=== PATIENT | female | born 1945 | race Caucasian/White ===

== ENCOUNTER 2020-05-21 12:09 | Outpatient (CLI) | payer MEDICARE, OTHER, SELFPAY ==
[2020-05-21 13:06] LABS: Alanine Aminotransferase 18 U/L (4-35); Albumin Level 3.9 g/dL (3.5-5.1); Alkaline Phosphatase 93 U/L (38-126); Anion Gap 10.1 mmol/L (7-16); Aspartate Amino Transferase 25 U/L (14-36); Bilirubin,Total 0.4 mg/dL (0.2-1.3); Blood Urea Nitrogen 19 mg/dL (7-17); Calcium 8.4 mg/dL (8.4-10.2); Carbon Dioxide 25 mmol/L (22-30); Chloride 107 mmol/L (98-107); Estimated Glomerular Filt Rate 54; Glucose 98 mg/dL (65-105); Potassium 4.1 mmol/L (3.4-5.0); Sodium 138 mmol/L (137-145); Uric Acid 4.1 mg/dL (2.5-7.5)
== END 2020-05-21 12:10 | disposition home or self-care (01) ==
PROVIDERS: PCP Internal Medicine; Visit Provider Podiatrist Foot & Ankle Surgery
DX: B35.1 Tinea unguium (principal); M10.079 Idiopathic gout, unspecified ankle and foot
CPT/HCPCS: 36415; 80053; 84550

== ENCOUNTER 2020-06-25 11:06 | Outpatient (CLI) | payer MEDICARE, OTHER, SELFPAY ==
[2020-06-25 12:10] LABS: Alanine Aminotransferase 15 U/L (4-35); Albumin Level 4.1 g/dL (3.5-5.1); Alkaline Phosphatase 96 U/L (38-126); Anion Gap 6 mmol/L (8-16); Aspartate Amino Transferase 23 U/L (14-36); Bilirubin,Total 0.4 mg/dL (0.2-1.3); Blood Urea Nitrogen 16 mg/dL (7-17); Calcium 9.7 mg/dL (8.4-10.2); Carbon Dioxide 30 mmol/L (22-30); Chloride 101 mmol/L (98-107); Cholesterol 186 mg/dL (0-200); Estimated Glomerular Filt Rate 49; Glucose 117 mg/dL (65-105); HDL Direct 43 mg/dL; Potassium 4.1 mmol/L (3.4-5.0); Sodium 137 mmol/L (137-145); Triglycerides 102 mg/dL (<150); Uric Acid 3.7 mg/dL (2.5-7.5)
[2020-06-25 12:20] LABS: LDL Cholesterol Direct 111 mg/dL
[2020-06-25 12:39] LABS: Thyroid Stimulating Hormone 0.782 uIU/mL (0.465-4.680)
[2020-06-25 12:52] LABS: Vitamin D 25 Hydroxy 49.1 ng/mL
== END 2020-06-25 11:07 | disposition home or self-care (01) ==
LOC: ANHLAB 11:09
PROVIDERS: PCP Internal Medicine; Visit Provider Internal Medicine Endocrinology, Diabetes & Metabolism
DX: I10 Essential (primary) hypertension (principal); E03.9 Hypothyroidism, unspecified; M10.9 Gout, unspecified; Z79.899 Other long term (current) drug therapy; E89.0 Postprocedural hypothyroidism
CPT/HCPCS: 36415; 80053; 80061; 82306; 84439; 84443; 84550

== ENCOUNTER 2020-10-28 07:48 | Outpatient (CLI) | payer MEDICARE, OTHER, SELFPAY ==
--- NOTE | ~2020-10-28 | MM_ITS ---
EXAMINATION: MM screening [facility] BI w carlin HISTORY: Screening mammogram TECHNIQUE: Craniocaudal and mediolateral oblique 3-D tomosynthesis images were obtained and synthetic 2-D images were generated. CAD analysis was submitted and interpreted. COMPARISON: 04/23/2019, 01/11/2018 bilateral digital screening mammogram examinations BREAST PARENCHYMAL COMPOSITION: There are scattered areas of fibroglandular density. FINDINGS: Scattered bilateral benign calcifications. There is no evidence of suspicious mass, calcifi cation, or architectural distortion to suggest malignancy in either breast. There has been no suspici ous interval change. IMPRESSION: 1. No mammographic evidence of malignancy. 2. Recommend routine screening mammography in one year. BI-RADS Category 2: Benign finding(s). Reviewed, dictated and finalized at location B. TECHNICIAN
--- NOTE | ~2020-10-28 | DEXA_ITS ---
Bone Density Report Name: Deanna Loving Age: 75 Sex: Female Ethnicity: White Date of : 1945 Indication: osteopenia; height loss; Referring Provider: LETICIA, ANGELITA Stoner Study: Bone densitometry was performed. Exam Date: October 28, 2020 Accession number: [id number] Bone Density: Region BMD T-score Z-score Classification AP Spine (L1, L3) 1.307 2.7 4.9 Normal Femoral Neck (Left) 0.678 -1.5 0.5 Osteopenia Total Hip (Left) 0.772 -1.4 0.3 Osteopenia Total Hip Bilateral Avg 0.792 -1.3 0.5 Osteopenia Femoral Neck (Right) 0.722 -1.1 0.9 Osteopenia Total Hip (Right) 0.812 -1.1 0.6 Osteopenia World Health Organization criteria for BMD impression classify patients as: Normal (T-score at or above -1.0), Osteopenia (T-score between -1.0 and -2.5), or Osteoporosis (T-score at or below -2.5). 10-year Fracture Risk(1): Major Osteoporotic Fracture 9.2% Hip Fracture 1.5% Reported Risk Factors: [place] (), Neck BMD=0.678, BMI=44.5 (1) FRAX(R) Version 3.08. Fracture probability calculated for an untreated patient. Fracture probability may be lower if the patient has received treatment. Previous Exams: Region Exam Age BMD T-score BMD Change BMD Change Date g/cm2 vs Baseline vs Previous AP Spine(L1, L3) 10/28/2020 75 1.307 2.7 0.241(22.6%)* 0.241(22.6%)* 01/11/2018 72 1.066 0.5 Total Hip(Left) 10/28/2020 75 0.772 -1.4 0.010(1.4%) 0.010(1.4%) 01/11/2018 72 0.761 -1.5 Total Hip(Right) 10/28/2020 75 0.812 -1.1 0.033(4.2%)* 0.033(4.2%)* 01/11/2018 72 0.779 -1.3 *Denotes significance at 95% confidence level, LSC for AP Spine = 0.022 g/cm2, LSC for Total Hip = 0.027 g/cm2 Clinical Information Provided by Patient: Has used the following medications: Vitamin D, Calcium Patient maximum height was 67 Menopause Age: 48 No regular weight bearing exercise Drinks caffeinated beverages Onset of menses at age 13 Number of children 6 Impression: The patient has low bone mass, based on the Left Femoral Neck T-score. The patient has an estimated ten-year risk of hip fracture of 1.5% and an estimated ten-year risk of major fracture of 9.2%, based on the WHO FRAX algorithm. No significant bone loss was observed. Discussion: BONE DENSITY IS LOW AT ONE OR MORE SKELETAL SITES. This patient's lowest T-score is low at one or more skeletal sites. It meets the World Health Organization's (WHO) criteria for ?low bone mas
== END 2020-10-28 07:49 | disposition home or self-care (01) ==
LOC: ANHIMG 07:54
PROVIDERS: PCP Internal Medicine; Visit Provider Internal Medicine
DX: Z12.31 Encounter for screening mammogram for malignant neoplasm of breast (principal); N95.9 Unspecified menopausal and perimenopausal disorder; M85.852 Other specified disorders of bone density and structure, left thigh; M85.851 Other specified disorders of bone density and structure, right thigh
CPT/HCPCS: 77063; 77067; 77080

== ENCOUNTER 2021-05-03 09:10 | Outpatient (CLI) | payer MEDICARE, OTHER, SELFPAY ==
[2021-05-03 10:12] LABS: Alanine Aminotransferase 17 U/L (4-35); Albumin Level 4.2 g/dL (3.5-5.1); Alkaline Phosphatase 119 U/L (38-126); Anion Gap 10 mmol/L (8-16); Aspartate Amino Transferase 26 U/L (14-36); Bilirubin,Total 0.4 mg/dL (0.2-1.3); Blood Urea Nitrogen 23 mg/dL (7-17); Calcium 10.7 mg/dL (8.4-10.2); Carbon Dioxide 26 mmol/L (22-30); Chloride 102 mmol/L (98-107); Estimated Glomerular Filt Rate 49; Glucose 107 mg/dL (65-105); Sodium 138 mmol/L (137-145); Uric Acid 3.8 mg/dL (2.5-7.5)
== END 2021-05-03 09:11 | disposition home or self-care (01) ==
PROVIDERS: PCP Internal Medicine; Visit Provider Podiatrist Foot & Ankle Surgery
DX: M10.079 Idiopathic gout, unspecified ankle and foot (principal)
CPT/HCPCS: 36415; 80053; 84550

== ENCOUNTER 2022-05-02 09:31 | Outpatient (CLI) | payer MEDICARE, OTHER, SELFPAY ==
[2022-05-02 10:09] LABS: Hemoglobin A1C 5.5 % (<5.7)
[2022-05-02 10:11] LABS: Alanine Aminotransferase 15 U/L (6-35); Albumin Level 4.1 g/dL (3.5-5.1); Alkaline Phosphatase 117 U/L (38-126); Anion Gap 8 mmol/L (8-16); Aspartate Amino Transferase 23 U/L (14-36); Bilirubin,Total 0.4 mg/dL (0.2-1.3); Blood Urea Nitrogen 21 mg/dL (7-17); Calcium 9.3 mg/dL (8.4-10.2); Carbon Dioxide 25 mmol/L (22-30); Chloride 106 mmol/L (98-107); Estimated Glomerular Filt Rate 54; Glucose 112 mg/dL (65-110); Sodium 139 mmol/L (137-145); Uric Acid 4.5 mg/dL (2.5-7.5)
[2022-05-02 10:50] LABS: Free T4 Free Thyroxine 1.91 ng/mL (0.78-2.19); Vitamin D 25 Hydroxy 76.2 ng/mL
[2022-05-02 11:22] LABS: Thyroid Stimulating Hormone 0.479 uIU/mL (0.465-4.680)
[2022-05-05 04:43] LABS: Triiodothyronine T3 Free 2.6 pg/mL (2.3-4.2)
== END 2022-05-02 09:32 | disposition home or self-care (01) ==
PROVIDERS: PCP Internal Medicine; Referring Provider Podiatrist Foot & Ankle Surgery; Visit Provider Internal Medicine
DX: I10 Essential (primary) hypertension (principal); E03.9 Hypothyroidism, unspecified; M10.9 Gout, unspecified; Z79.899 Other long term (current) drug therapy; R73.9 Hyperglycemia, unspecified
CPT/HCPCS: 36415; 80053; 82306; 83036; 84439; 84443; 84481; 84550

== ENCOUNTER 2022-06-20 08:55 | Outpatient (CLI) | payer MEDICARE, OTHER, SELFPAY ==
--- NOTE | ~2022-06-20 | MM_ITS ---
EXAMINATION: MM screening [facility] BI w carlin HISTORY: Screening mammogram TECHNIQUE: Craniocaudal and mediolateral oblique 3-D tomosynthesis images were obtained and synthetic 2-D images were generated. CAD analysis was submitted and interpreted. COMPARISON: 11/17/2020, 04/23/2019 BREAST PARENCHYMAL COMPOSITION: The breasts are almost entirely fatty. FINDINGS: There is no suspicious mass, calcification, or architectural distortion to suggest malignan cy in either breast. There has been no suspicious interval change. IMPRESSION: 1. No mammographic evidence of malignancy. 2. Recommend routine screening mammography in one year. BI-RADS Category 1: Negative Reviewed, dictated and finalized at location A.
== END 2022-06-20 08:56 | disposition home or self-care (01) ==
LOC: ANHIMG 08:57
PROVIDERS: PCP Internal Medicine; Visit Provider Internal Medicine
DX: Z12.31 Encounter for screening mammogram for malignant neoplasm of breast (principal)
CPT/HCPCS: 77063; 77067

== ENCOUNTER 2023-03-01 05:34 | Day surgery (SDC) | payer MEDICARE, OTHER, SELFPAY ==
[2023-01-16 14:28] VITALS: BMI 39.5
--- NOTE | 2023-02-15 14:13 | PC.NURSE ---
verified with pt new date and time of procedure. pt denies any changes in medical history or new medications. pt denies any questions.
--- NOTE | 2023-02-28 20:32 | PM.HPGS ---
History of Present Illness History of Present Illness Consent: Risks, benefits, and alternatives have been discussed and questions answered. Patient agrees to proceed with procedure. Chief complaint: neoplasm screening Narrative: Deanna Loving is a 77 year old female Colonoscopy with possible biopsy or polypectomy or cautery or injection of substances.Ten years ago she had colonoscopy with removal of a small tubular adenoma. Review of Systems Review of Systems: All systems reviewed & are unremarkable except as noted in HPI and below PMFSH Social History Social History Smoking packs per day: 0.5 Smoking cigarettes per day: 10.0 Years smoked: 7 Smoking pack-years: 3.50 Smoking status: Former smoker Tobacco type: cigarettes Alcohol intake: current Drinks per week: 3 Substance use: never Substance use type: does not use Living arrangements: with family Spiritual care concerns: No Meds Home Medications and Allergies Home Medications Medication Instructions Recorded Confirmed Type allopurinol 100 mg tablet 100 mg PO DAILY 01/16/23 01/16/23 History levothyroxine 125 mcg tablet 125 mcg PO DAILY 01/16/23 01/16/23 History (Synthroid) losartan 100 mg tablet 100 mg PO DAILY 01/16/23 01/16/23 History terbinafine HCl 250 mg tablet 250 mg PO DAILY 01/16/23 01/16/23 History Allergies Allergy/AdvReac Type Severity Reaction Status Date / Time Sulfa (Sulfonamide Allergy Mild Rash Verified 03/01/23 09:36 Antibiotics) Exam Const: General: alert Orientation/consciousness: patient oriented x3 Resp: Auscultation: clear to auscultation bilaterally Cardio: Rate: regular rate Rhythm: regular rhythm GI: GI Palp: Yes Soft to palpation and No Tenderness to palpation present (GI) Neuro: General: patient oriented x3 Assessment and Plan Assessment and plan (1) Colon cancer screening: Code(s): Z12.11 - Encounter for screening for malignant neoplasm of colon Status: Acute Assessment and Plan: Colonoscopy with possible biopsy or polypectomy or cautery or injection of substances.
[2023-03-01 09:38] VITALS: BP 109/85; PULSE 84; RESP 18; TEMP 36.1; O2SAT 99
[2023-03-01] MEDS: LACTATED RINGERS 1,000 ML 150 ML IV CONT (09:51)
--- NOTE | 2023-03-01 10:40 | WPDANESEPPF ---
Anes - Initial Pre Proc Eval Procedure: Operation Date: 03/01/23 10:45 Proposed Procedures p Screening Colonoscopy - Chuy Villar MD Date/Time: 03/01/23 10:40 Surgeon: Chuy Villar MD Pre Op Diagnosis: neoplasm screening Patient Data Age: 77 Gender: F Height: 1.63 m Weight: 104.2 kg Last Vital Signs Temp 97.0 F L 03/01/23 09:38 Pulse 84 03/01/23 09:38 Resp 18 03/01/23 09:38 BP 109/85 03/01/23 09:38 Pulse Ox 99 03/01/23 09:38 O2 Del Method Room Air 03/01/23 09:38 Allergies Allergy/AdvReac Type Severity Reaction Status Date / Time Sulfa (Sulfonamide Allergy Mild Rash Verified 03/01/23 09:36 Antibiotics) Home Medications Medication Instructions Recorded Confirmed Type allopurinol 100 mg tablet 100 mg PO DAILY 01/16/23 01/16/23 History levothyroxine 125 mcg tablet 125 mcg PO DAILY 01/16/23 01/16/23 History (Synthroid) losartan 100 mg tablet 100 mg PO DAILY 01/16/23 01/16/23 History terbinafine HCl 250 mg tablet 250 mg PO DAILY 01/16/23 01/16/23 History Patient hx anesthesia problems: none Family hx anesthesia problems: none Results Review: All pre-operative results and documents have been reviewed as part of the pre-operative evaluation. [facility] [place] Social History Social History Smoking packs per day: 0.5 Smoking cigarettes per day: 10.0 Years smoked: 7 Smoking pack-years: 3.50 Smoking status: Former smoker Tobacco type: cigarettes Alcohol intake: current Drinks per week: 3 Substance use: never Substance use type: does not use Living arrangements: with family Spiritual care concerns: No Anes - Eval Final PreProcedure Day of Procedure 03/01/23 10:40 Patient weight: morbidly obese Heart: regular rate and rhythm Lungs: clear to auscultation Airway: Mallampati scale class II Neurological: alert and oriented Last oral intake: >/= 8 hours ASA classification: III Emergent: no Anesthetic plan: proceed Anesthesia type and monitoring: general GIVS and standard monitoring Results Review: All pre-operative results and documents have been reviewed as part of the pre-operative evaluation. Informed Consent: The patient's anesthetic plan and its attendant risks and benefits were discussed with the patient/family/POA. Questions were solicited and answers provided to the satisfaction of the patient/family/POA.
[2023-03-01 11:08] VITALS: BP 115/57; PULSE 61; RESP 22; O2SAT 100
[2023-03-01 11:18] VITALS: BP 87/62; PULSE 65; RESP 22; O2SAT 100
[2023-03-01 11:28] VITALS: BP 129/69; PULSE 58; RESP 19; O2SAT 100
== END 2023-03-01 11:53 | disposition home or self-care (01) ==
PROVIDERS: PCP Internal Medicine; Visit Provider Internal Medicine Gastroenterology
PROC: 0DJD8ZZ Inspection of Lower Intestinal Tract, Via Natural or Artificial Opening Endoscopic (ICD-10-PCS; CPT 45378; principal; 2023-03-01 10:45)
DX: Z12.11 Encounter for screening for malignant neoplasm of colon (principal); K57.30 Diverticulosis of large intestine without perforation or abscess without bleeding; K64.8 Other hemorrhoids; Z86.010 Personal history of colon polyps; Z87.891 Personal history of nicotine dependence; E66.01 Morbid (severe) obesity due to excess calories; Z68.39 Body mass index [BMI] 39.0-39.9, adult
CPT/HCPCS: G0105; J2704; J7120

== ENCOUNTER 2023-05-01 08:36 | Outpatient (CLI) | payer MEDICARE, OTHER, SELFPAY ==
[2023-05-01 09:18] LABS: Alanine Aminotransferase 16 U/L (6-35); Albumin Level 3.9 g/dL (3.5-5.1); Alkaline Phosphatase 101 U/L (38-126); Anion Gap 1 mmol/L (8-16); Aspartate Amino Transferase 25 U/L (14-36); Bilirubin,Total 0.5 mg/dL (0.2-1.3); Blood Urea Nitrogen 14 mg/dL (7-17); Calcium 8.9 mg/dL (8.4-10.2); Carbon Dioxide 32 mmol/L (22-30); Chloride 104 mmol/L (98-107); Estimated Glomerular Filt Rate 54; Glucose 116 mg/dL (65-110); Potassium 4.1 mmol/L (3.4-5.0); Sodium 137 mmol/L (137-145); Uric Acid 5.1 mg/dL (2.5-7.5)
== END 2023-05-01 08:37 | disposition home or self-care (01) ==
PROVIDERS: PCP Internal Medicine; Visit Provider Podiatrist Foot & Ankle Surgery
DX: M10.079 Idiopathic gout, unspecified ankle and foot (principal)
CPT/HCPCS: 36415; 80053; 84550

== ENCOUNTER 2023-05-26 08:23 | Outpatient (CLI) | payer MEDICARE, OTHER, SELFPAY ==
--- NOTE | 2023-05-26 | ECHO_ITS ---
Patient Info Name: Deanna Loving Age: 78 years : 1945 Gender: Female Ht: 64 in Wt: 220 lbs BSA: 2.17 m2 HR: 76 bpm BP: 145 / 86 mmHg Technical Quality: Good Exam Date: 05/26/2023 8:53 AM Exam Location: [facility] Patient Status: Outpatient Admit Date: 05/26/2023 Staff Ordering Physician: Amandeep, Sharan Stoner MD Window Caser: Aleta Mendoza RDCS Attending Provider: Wesley, Sharan Stoner MD Referring Physician: Amandeep FARRELL; Exam Type: CA echo doppler color flow Study Info Indications I49.9 - Cardiac arrhythmia, unspecified Complete two-dimensional, color flow and Doppler transthoracic echocardiogram is performed. Summary 1. Complete two-dimensional, color flow and Doppler transthoracic echocardiogram is performed. 2. Left ventricular chamber dimension is normal. 3. Left ventricular systolic function is normal, estimated at 60-65%. 4. The left ventricular diastolic function is grade I diastolic dysfunction. 5. E/e' 10 is mildly elevated. 6. Left atrial chamber dimension is mildly enlarged. 7. There is trace tricuspid valve regurgitation. 8. No pulmonary hypertension, estimated pulmonary arterial systolic pressure is 30 mmHg. Left Ventricle E/e' 10 is mildly elevated. Left ventricular chamber dimension is normal. Left ventricular systolic function is normal, estimated at 60-65%. The left ventricular diastolic function is grade I diastolic dysfunction. Right Ventricle Right ventricular chamber dimension is normal. Right ventricular systolic function is normal. Left Atria Left atrial chamber dimension is mildly enlarged. Right Atria Right atrial chamber dimension is normal. Aortic Valve The aortic valve is trileaflet. There is no aortic valve stenosis. There is no aortic valve regurgitation. Pulmonic Valve There is no pulmonic regurgitation. Mitral Valve There is no mitral valve stenosis. There is no mitral valve regurgitation. Tricuspid Valve There is trace tricuspid valve regurgitation. No pulmonary hypertension, estimated pulmonary arterial systolic pressure is 30 mmHg. Pericardium/Pleural There is no pericardial effusion. Inferior Vena Cava Normal inferior vena cava with >50% collapse upon inspiration consistent with normal right atrial pressure, 5 mmHg. Aorta The aortic root size at the sinus of Valsalva is normal. Left Ventricular Outflow Tract Name Value Normal LVOT 2D LVOT Diameter 2.0 cm LVOT Doppler LVOT Peak Gradient 4 mmHg LVOT Mean Gradient 2 mmHg LVOT VTI 23 cm LVOT VTI/AV VTI Ratio 0.8 LVOT Stroke Volume 71 ml LVOT CO 13.8 l/min LVOT CI 6.4 l/min/m2 Pulmonic Valve Name Value Normal RVOT Doppler RVOT Peak Gradient 2 mmHg PV Doppler
== END 2023-05-26 08:24 | disposition home or self-care (01) ==
LOC: ANHCARD 08:25
PROVIDERS: PCP Internal Medicine; Visit Provider Internal Medicine
DX: R94.31 Abnormal electrocardiogram [ECG] [EKG] (principal); I49.9 Cardiac arrhythmia, unspecified
CPT/HCPCS: 93306

== ENCOUNTER 2024-03-22 08:05 | Outpatient (CLI) | payer MEDICARE, OTHER, SELFPAY ==
--- NOTE | ~2024-03-22 | MM_ITS ---
EXAMINATION: MM screening [facility] BI w carlin HISTORY: Screening TECHNIQUE: Craniocaudal and mediolateral oblique 3-D tomosynthesis images were obtained and synthetic 2-D images were generated. CAD analysis was submitted and interpreted. COMPARISON: Comparison to multiple prior studies sequentially, with oldest reviewed study dated 11/2018. BREAST PARENCHYMAL COMPOSITION: Not dense: There are scattered areas of fibroglandular density. FINDINGS: There is no evidence of suspicious mass, calcification, or architectural distortion to sugg est malignancy in either breast. There has been no suspicious interval change. IMPRESSION: 1. No mammographic evidence of malignancy. 2. Recommend routine screening mammography in one year. BI-RADS Category 1: Negative Reviewed, dictated and finalized at location B.
--- NOTE | ~2024-03-22 | DEXA_ITS ---
Bone Density Report Name: JULIOCESAR AMBRIZ Age: 78 Sex: Female Ethnicity: White Date of : 1945 Indication: osteopenia; height loss; history of glucocorticoids; Referring Provider: LETICIA, ANGELITA Stoner Study: Bone densitometry was performed. Exam Date: March 22, 2024 Accession number: [id number] Bone Density: Region BMD T-score Z-score Classification AP Spine(L1-L4) 1.319 2.5 5.0 Normal Femoral Neck (Left) 0.638 -1.9 0.3 Osteopenia Total Hip (Left) 0.788 -1.3 0.6 Osteopenia Femoral Neck (Right) 0.684 -1.5 0.7 Osteopenia Total Hip (Right) 0.793 -1.2 0.7 Osteopenia Total Hip Mean 0.790 -1.3 0.7 Osteopenia World Health Organization criteria for BMD impression classify patients as: Normal (T-score at or above -1.0), Osteopenia (T-score between -1.0 and -2.5), or Osteoporosis (T-score at or below -2.5). 10-year Fracture Risk(1): Major Osteoporotic Fracture 18% Hip Fracture 4.7% Reported Risk Factors: [place] (), Neck BMD=0.638, BMI=41.6, glucocorticoids (1) FRAX(R) Version 3.08. Fracture probability calculated for an untreated patient. Fracture probability may be lower if the patient has received treatment. Previous Exams: Region Exam Age BMD T-score BMD Change BMD Change Date g/cm2 vs Baseline vs Previous Total Hip(Left) 03/22/2024 78 0.788 -1.3 0.026 (3.5%) 0.016 (2.1%) 10/28/2020 75 0.772 -1.4 0.010 (1.4%) 0.010 (1.4%) 01/11/2018 72 0.761 -1.5 Total Hip(Right) 03/22/2024 78 0.793 -1.2 0.014 (1.8%) -0.019 (-2.3%) 10/28/2020 75 0.812 -1.1 0.033 (4.2%)* 0.033 (4.2%)* 01/11/2018 72 0.779 -1.3 *Denotes significance at 95% confidence level, LSC for Total Hip = 0.027 g/cm2 Clinical Information Provided by Patient: Has taken Glucocorticoids Has used the following medications: Vitamin D, Calcium Patient maximum height was 67.5 Menopause Age: 48 No regular weight bearing exercise Drinks caffeinated beverages Onset of menses at age 14 Number of children 5 Missed period for more than 6 months in a row Impression: The patient has low bone mass, based on the Left Femoral Neck T-score. The patient has an estimated ten-year risk of hip fracture of 4.7% and an estimated ten-year risk of major fracture of 18%, based on the WHO FRAX algorithm. The patient has risk factors, including: history of glucocorticoid therapy. No significant bone loss was observed. Discussion: BONE DENSITY IS LOW AT ONE OR MORE SKELETAL SITES.
== END 2024-03-22 08:06 | disposition home or self-care (01) ==
LOC: ANHIMG 08:06
PROVIDERS: PCP Internal Medicine; Visit Provider Internal Medicine
DX: Z12.31 Encounter for screening mammogram for malignant neoplasm of breast (principal); Z78.0 Asymptomatic menopausal state; M85.89 Other specified disorders of bone density and structure, multiple sites
CPT/HCPCS: 77063; 77067; 77080

== ENCOUNTER 2024-05-01 08:51 | Outpatient (CLI) | payer MEDICARE, OTHER, SELFPAY ==
[2024-05-01 10:48] LABS: Alanine Aminotransferase 12 U/L (6-35); Albumin Level 3.9 g/dL (3.5-5.1); Alkaline Phosphatase 94 U/L (38-126); Anion Gap 9 mmol/L (4-12); Aspartate Amino Transferase 22 U/L (14-36); Bilirubin,Total 0.4 mg/dL (0.2-1.3); Blood Urea Nitrogen 21 mg/dL (7-17); Calcium 8.5 mg/dL (8.4-10.2); Carbon Dioxide 28 mmol/L (22-30); Chloride 101 mmol/L (98-107); Estimated Glomerular Filt Rate 44; Glucose 99 mg/dL (65-110); Potassium 3.9 mmol/L (3.4-5.0); Sodium 138 mmol/L (137-145)
== END 2024-05-01 08:52 | disposition home or self-care (01) ==
LOC: ANHLAB 08:54
PROVIDERS: PCP Internal Medicine; Visit Provider Podiatrist Foot & Ankle Surgery
DX: B35.1 Tinea unguium (principal); M10.079 Idiopathic gout, unspecified ankle and foot
CPT/HCPCS: 36415; 80053; 84550

== ENCOUNTER 2025-04-30 08:43 | Outpatient (CLI) | payer MEDICARE, OTHER, SELFPAY ==
--- OUTSIDE RECORDS SUMMARY | 2025-04-30 09:00 | XMS_ITS | Data Portability ---
Author Organization [place] [facility], Main Office Address [address] [place] [address] Care Team Providers Care Casing Runner Name Role Phone ANGELITA KELLY Primary Care Provider Assessment No assessment recorded. Plan of Treatment Reminders Order Date Submit Date Provider Last Modified By Organization Details Last Modified Time Details Appointments Any 15 2024 08:45A M Angelita Kelly MD Not available Not available Not available Lab BMP, serum or plasma 2024 025 [facility] (Lab), [address] [place], [address], 01/30/2025 18:34:24 BMP, serum or plasma 2023 024 [facility] (Lab), [address] [place], [address], 10/03/2024 11:10:02 uric acid, serum or plasma 2023 024 [facility] (Lab), [address] [place], [address], 06/11/2024 19:59:39 CBC w/ auto diff 2023 024 [facility] (Lab), [address] [place], [address], 06/11/2024 19:15:45 glycohemo globin, total, blood 2023 024 [facility] (Lab), [address] [place], [address], 06/11/2024 20:43:02 CMP, serum or plasma 2023 024 [facility] (Lab), [address] [place], [address], 06/11/2024 19:59:38 TSH, serum or plasma 2023 024 [facility] (Lab), [address] [place], [address], 06/11/2024 20:34:56 T4, free, serum 2023 024 [facility] (Lab), [address] [place], [address], 06/11/2024 20:22:48 T3, free, serum or plasma 2023 024 [facility] (Lab), [address] [place], [address], 06/11/2024 20:09:00 vitamin D, 25-hydrox y, total, serum [address] (Lab), [address] [place], [address], 10/25/2023 09:24:56 CBC w/ auto diff [address] (Lab), [address] [place], [address], 10/25/2023 09:24:56 glycohemo globin, total, blood [address] (Lab), [address] [place], [address], 10/25/2023 09:24:55 CMP, serum or plasma [address] (Lab), [address] [place], [address], 10/25/2023 09:24:55 TSH, serum or plasma [address] (Lab), [address] [place], [address], 10/25/2023 09:24:55 T4, free, serum [address] (Lab), [address] [place], [address], 10/25/2023 09:24:55 T3, free, serum or plasma [address] (Lab), [address] [place], [address], 10/25/2023 09:24:55 Referral None recorded. Procedures None recorded. Surgeries None recorded. Imaging None recorded. Medication Orders amoxicill in 500 mg capsule 2024 025 [facility], [address] [place] [address], [id number], 01/30/2025 09:24:44 Farxiga 10 mg tablet 2024 025 [email or web address] [facility], [address] [place] [address], [id number], 02/11/2025 14:24:45 allopurin ol 100 mg tablet 2023 024 FAYE [facility], [address] [place] [address], [id number], 06/11/2024 09:47:31 meloxicam 7.5 mg tablet 2023 024 [email or web address] [facility], [address] [place] [address], [id number], 06/13/2024 14:49:42 Synthroid 125 mcg tablet [address], [address] [place] [address], [id number], 06/11/2024 11:03:05 losartan 100 mg tablet [address] [facility], [address] [place] [address], [id number], 02/07/2024 17:01:56 Synthroid 125 mcg tablet [address] [facility], [address] [place] [address], [id number], 02/07/2024 17:01:56 benzonata te 200 mg capsule 2022 023 [email or web address] [facility], [address] [place] [address], [id number], 02/07/2024 10:17:02 Patient TargetsNo targets recorded. Patient Instructions Encounter Date Encounter Id Patient Instructions Last Modified By Organization Details Last Modified Time 09/27/2023 [id number] Personalized [facility] Plan and Screening Recommendations Advance Directives - Do you have one? Yes Advance Directives - Do we have your advance directive on file in your health record? Primary Prevention/Interven tion (prevents or decreases the chance of common diseases from occurring) Smoking Risk: Non Smoker Alcohol Misuse Screening: Negative Weight: Overweight try to lose 15% of your body weight Physical activity: Need more exercise/physical activity minimum of 20-30 minutes activity that causes mild breathlessness/day Nutrition: Average Refer to attached handout Heart-Healthy Diet: After Your Visit Fall Risk (screened today): Low Refer to attached handout Preventing Falls: After your Visit Vaccines Pneumococcal: No further needed Influenza: Your next one in the fall of this year Chronic Disease Risks Stroke: Intermediate Risk Active diagnosis, Continue current treatment plan Heart Attack: Intermediate Risk Active diagnosis, Continue current treatment plan Clogging of the Arteries: Intermediate Risk Active diagnosis, Continue current treatment plan Diabetes: Low Risk I have no recommendations Secondary Prevention/Interven tion (detects treatable diseases before they may cause symptoms, disability, or ) Breast Cancer Screening with mammogram: Ordered Cervical/Uterine/Ov aldair Cancer Screening: No screening necessary Osteoporosis Screening: Ordered Date Screening Last Performed: Colon Cancer Screening: Colonoscopy No screening necessary Date Screening Last Performed: Eye Disease Screening: Your next exam in: Dementia Risk: Low Depression Screening: Negative Not available 09/27/2023 10:46:52 06/11/2024 [id number] dementia rating scale-2* Not available 06/11/2024 11:04:36 depression screening* Not available 06/11/2024 11:04:36 alcohol misuse* Not available 06/11/2024 11:04:36 Timed Up and Go test (TUG)* Not available 06/11/2024 11:04:36 multi-dimensiona l health assessment questionnaire* Not available 06/11/2024 11:04:35 Personalized Hea lth Plan and Screening Recommendations Advance Directives - Do you have one? Yes You have indicated that you are capable of preparing your advance care directive Advance Directives - Do we have your advance directive on file in your health record? No, please bring in a copy at your earliest convenience Primary Prevention/Interven tion (prevents or decreases the chance of common diseases from occurring) Smoking Risk: Non Smoker Alcohol Misuse Screening: Negative Weight: Overweight try to lose 15% of your body weight Physical activity: Need more exercise/physical activity minimum of 10-20 minutes of activity that causes mild breathlessness/day Nutrition: Average Refer to attached handout DASH Diet: After Your Visit Fall Risk (screened today): Intermediate Refer to attached handout Preventing Falls: After your Visit Vaccines Pneumococcal: No further needed Influenza: Your next one in the fall of this year Chronic Disease Risks Stroke: Intermediate Risk Active diagnosis, Continue current treatment plan Heart Attack: Low risk Active diagnosis, Continue current treatment plan Clogging of the Arteries: Low risk Active diagnosis, Continue current treatment plan Diabetes: Low Risk I have no recommendations Secondary Prevention/Interven tion (detects treatable diseases before they may cause symptoms, disability, or ) Breast Cancer Screening with mammogram: No screening necessary Cervical/Uterine/Ov aldair Cancer Screening: No screening necessary Osteoporosis Screening: No screening necessary Date Screening Last Performed: Colon Cancer Screening: Colonoscopy No screening necessary Date Screening Last Performed: _ Eye Disease Screening: No Eye exam necessary Dementia Risk: Low I have no recommendations Depression Screening: Negative I have no recommendations [email or web address] Not available 06/11/2024 10:52:49 Reason for Referral None Reported. Results Created Date Observation Date Name Description Value Unit Range Abnormal Flag Note LastModifiedBy Organization Detail LastModifiedTime 06/11/20 24 06/11/2024 CBC/C OMPLE TE BLD COUNT W/DIF F white blood cells 5.7 x10'3 /uL 4.2-10 .8 Not Available [facility] (Lab) [address] [place], [address], 06/11/2024 19:15:45 06/11/20 24 06/11/2024 CBC/C OMPLE TE BLD COUNT W/DIF F red blood cells 3.83 x10'6 /uL 3.80-5 .20 Not Available [facility] (Lab) [address] [place], [address], 06/11/2024 19:15:45 06/11/20 24 06/11/2024 CBC/C OMPLE TE BLD COUNT W/DIF F hemoglobin 11.6 g/dL 12.0-1 5.6 low Not Available [facility] (Lab) [address] [place], [address], 06/11/2024 19:15:45 06/11/20 24 06/11/2024 CBC/C OMPLE TE BLD COUNT W/DIF F hematocrit 37.2 % 35.7-4 5.7 Not Available [facility] (Lab) [address] [place], [address], 06/11/2024 19:15:45 06/11/20 24 06/11/2024 CBC/C OMPLE TE BLD COUNT W/DIF F mean red cell volume 97.1 fL 82.0-9 9.0 Not Available [facility] (Lab) [address] [place], [address], 06/11/2024 19:15:45 06/11/20 24 06/11/2024 CBC/C OMPLE TE BLD COUNT W/DIF F mean red cell hemoglobin 30.3 pg 27.0-3 3.0 Not Available [facility] (Lab) [address] [facility] [place], [address], 06/11/2024 19:15:45 06/11/20 24 06/11/2024 CBC/C OMPLE TE BLD COUNT W/DIF F mean RBC HGB concentratio n 31.2 g/dL 31.0-3 6.0 Not Available [facility] (Lab) [address] [place], [address], 06/11/2024 19:15:45 06/11/20 24 06/11/2024 CBC/C OMPLE TE BLD COUNT W/DIF F red cell distribution width 14.2 % 11.8-1 5.5 Not Available [facility] (Lab) [address] [place], [address], 06/11/2024 19:15:45 06/11/20 24 06/11/2024 CBC/C OMPLE TE BLD COUNT W/DIF F platelets 224 x10'3 /uL 150-40 0 Not Available [facility] (Lab) [address] [place], [address], 06/11/2024 19:15:45 06/11/20 24 06/11/2024 CBC/C OMPLE TE BLD COUNT W/DIF F mean platelet volume 11.6 fL 9.0-12 .4 Not Available [facility] (Lab) [address] [place], [address], 06/11/2024 19:15:45 06/11/20 24 06/11/2024 CBC/C OMPLE TE BLD COUNT W/DIF F neutrophils 53.7 % 39.0-7 2.0 Not Available [facility] (Lab) [address] [place], [address], 06/11/2024 19:15:45 06/11/20 24 06/11/2024 CBC/C OMPLE TE BLD COUNT W/DIF F lymphocytes 31.6 % 16.0-4 7.0 Not Available [facility] (Lab) [address] [place], [address], 06/11/2024 19:15:45 06/11/20 24 06/11/2024 CBC/C OMPLE TE BLD COUNT W/DIF F monocytes 10.3 % 5.0-12 .0 Not Available [facility] (Lab) [address] [place], [address], 06/11/2024 19:15:45 06/11/20 24 06/11/2024 CBC/C OMPLE TE BLD COUNT W/DIF F eosinophils 2.6 % 1.0-7. 0 Not Available [facility] (Lab) [address] [place], [address], 06/11/2024 19:15:45 06/11/20 24 06/11/2024 CBC/C OMPLE TE BLD COUNT W/DIF F basophils 1.6 % 0.0-2. 0 Not Available [facility] (Lab) [address] [place], [address], 06/11/2024 19:15:45 06/11/20 24 06/11/2024 CBC/C OMPLE TE BLD COUNT W/DIF F immature granulocytes 0.2 % 0.00-0 .50 Not Available [facility] (Lab) [address] [place], [address], 06/11/2024 19:15:45 06/11/20 24 06/11/2024 CBC/C OMPLE TE BLD COUNT W/DIF F neutrophils, absolute count 3.08 x10'3 /uL 1.5-8. 0 Not Available [facility] (Lab) [address] [place], [address], 06/11/2024 19:15:45 06/11/20 24 06/11/2024 CBC/C OMPLE TE BLD COUNT W/DIF F lymphocytes, absolute count 1.81 x10'3 /uL 1.07-3 .43 Not Available [facility] (Lab) [address] [place], [address], 06/11/2024 19:15:45 06/11/20 24 06/11/2024 CBC/C OMPLE TE BLD COUNT W/DIF F monocytes, absolute count 0.59 x10'3 /uL 0.29-0 .99 Not Available [facility] (Lab) [address] [place], [address], 06/11/2024 19:15:45 06/11/20 24 06/11/2024 CBC/C OMPLE TE BLD COUNT W/DIF F eosinophils, absolute count 0.15 x10'3 /uL 0.02-0 .53 Not Available [facility] (Lab) [address] [place], [address], 06/11/2024 19:15:45 06/11/20 24 06/11/2024 CBC/C OMPLE TE BLD COUNT W/DIF F basophils, absolute count 0.09 x10'3 /uL 0.01-0 .08 high Not Available [facility] (Lab) [address] [place], [address], 06/11/2024 19:15:45 06/11/20 24 06/11/2024 CBC/C OMPLE TE BLD COUNT W/DIF F immature granulocytes ,absolute 0.01 x10'3 /uL 0.00-0 .05 Not Available [facility] (Lab) [address] [place], [address], 06/11/2024 19:15:45 06/11/20 24 06/11/2024 CBC/C OMPLE TE BLD COUNT W/DIF F nucleated red blood cells 0.0 % -0 Not Available [facility] (Lab) [address] [place], [address], 06/11/2024 19:15:45 06/11/20 24 06/11/2024 CBC/C OMPLE TE BLD COUNT W/DIF F NRBC# 0.00 x10'3 /uL Not Available [facility] (Lab) [address] [place], [address], 06/11/2024 19:15:45 06/11/20 24 06/11/2024 COMPR EHENS LEXIE METAB OLIC PANEL sodium 137 mmol/ L 137-14 5 Not Available [facility] (Lab) [address] [place], [address], 06/11/2024 19:59:37 06/11/20 24 06/11/2024 COMPR EHENS LEXIE METAB OLIC PANEL potassium 4.4 mmol/ L 3.5-5. 1 Not Available [facility] (Lab) [address] [place], [address], 06/11/2024 19:59:37 06/11/20 24 06/11/2024 COMPR EHENS LEXIE METAB OLIC PANEL chloride 107 mmol/ L 98-107 Not Available [facility] (Lab) [address] [place], [address], 06/11/2024 19:59:37 06/11/20 24 06/11/2024 COMPR EHENS LEXIE METAB OLIC PANEL carbon dioxide 25 mmol/ L 22-30 Not Available [facility] (Lab) [address] [place], [address], 06/11/2024 19:59:37 06/11/20 24 06/11/2024 COMPR EHENS LEXIE METAB OLIC PANEL anion gap 9.4 mmol/ L 14-22 low Not Available [facility] (Lab) [address] [place], [address], 06/11/2024 19:59:37 06/11/20 24 06/11/2024 COMPR EHENS LEXIE METAB OLIC PANEL glucose 93 mg/dL 70-99 Not Available [facility] (Lab) [address] [place], [address], 06/11/2024 19:59:37 06/11/20 24 06/11/2024 COMPR EHENS LEXIE METAB OLIC PANEL BUN 30 mg/dL 8-19 high Not Available [facility] (Lab) [address] [place], [address], 06/11/2024 19:59:37 06/11/20 24 06/11/2024 COMPR EHENS LEXIE METAB OLIC PANEL creatinine 1.08 mg/dL 0.66-1 .25 Not Available [facility] (Lab) [address] [place], [address], 06/11/2024 19:59:37 06/11/20 24 06/11/2024 COMPR EHENS LEXIE METAB OLIC PANEL GFR 49 Refer ence Range : Nelson ge GFR Healt hy Adult : >60 mL/mi n/1.7 3 m2 Chron ic Kidne y Disea se: 15-60 mL/mi n/1.7 3 m2 Kidne y Failu re: <15/m L/min /1.73 m2 www.n iddk. nih.g ov The MDRD study equat ion has not been valid ated in child glen <18 years of age; pregn ant women ; the elder ly >85 years of age; or in some racia l or ethni c subgr oups, such as Hispa nics. Outsi de the valid ated zully eters , estim ated GFR is less accur ate, requi ring clini nader judgm ent on a case- by-ca se basis . Clini nader inter preta tion for other races and ages must be made by the clini george. The MDRD study equat ion has not been valid ated for the evalu ation of serum creat inine relat ed to nutri talita l statu s or medic ation usage . For perso ns <18 years of age, a pedia tric GFR calcu lator is avail able on the [facility] websi te: https :[email or web address] w.henry hoangy.o rg/pr ofess ional s/kdo qi/gf r_cal culat or Not Available [facility] (Lab) [address] [place], [address], 06/11/2024 19:59:37 06/11/20 24 06/11/2024 COMPR EHENS LEXIE METAB OLIC PANEL alkaline phosphatase 104 U/L 38-126 Not Available [facility] (Lab) [address] [place], [address], 06/11/2024 19:59:37 06/11/20 24 06/11/2024 COMPR EHENS LEXIE METAB OLIC PANEL alanine aminotransfe rase 12 U/L 0-35 Not Available [facility] (Lab) [address] [place], [address], 06/11/2024 19:59:37 06/11/20 24 06/11/2024 COMPR EHENS LEXIE METAB OLIC PANEL aspartate aminotransfe rase 25 U/L 15-37 Not Available [facility] (Lab) [address] [place], [address], 06/11/2024 19:59:37 06/11/20 24 06/11/2024 COMPR EHENS LEXIE METAB OLIC PANEL bilirubin, total 0.50 mg/dL 0.20-1 .30 Not Available [facility] (Lab) [address] [place], [address], 06/11/2024 19:59:37 06/11/20 24 06/11/2024 COMPR EHENS LEXIE METAB OLIC PANEL calcium 8.8 mg/dL 8.4-10 .2 Not Available [facility] (Lab) [address] [place], [address], 06/11/2024 19:59:37 06/11/20 24 06/11/2024 COMPR EHENS LEXIE METAB OLIC PANEL total protein 6.8 g/dL 6.3-8. 2 Not Available [facility] (Lab) [address] [place], [address], 06/11/2024 19:59:37 06/11/20 24 06/11/2024 COMPR EHENS LEXIE METAB OLIC PANEL albumin 4.0 g/dL 3.0-4. 4 Not Available [facility] (Lab) [address] [place], [address], 06/11/2024 19:59:37 06/11/20 24 06/11/2024 COMPR EHENS LEXIE METAB OLIC PANEL globulin 2.8 g/dL 2.6-4. 2 Not Available [facility] (Lab) [address] [place], [address], 06/11/2024 19:59:37 06/11/20 24 06/11/2024 COMPR EHENS LEXIE METAB OLIC PANEL A/G ratio 1.4 ratio 1.0-2. 0 Not Available [facility] (Lab) [address] [place], [address], 06/11/2024 19:59:37 06/11/20 24 06/11/2024 URIC ACID SERUM uric acid 4.0 mg/dL 2.5-6. 2 Not Available [facility] (Lab) [address] [place], [address], 06/11/2024 19:59:39 06/11/20 24 06/12/2024 T3 FREE free T3 2.7 pg/mL 2.77-5 .27 low Not Available [facility] (Lab) [address] [place], [address], 06/13/2024 00:07:50 06/11/20 24 06/11/2024 T4 FREE free T4 1.74 NG/dL 0.78-2 .19 Not Available [facility] (Lab) [address] [place], [address], 06/11/2024 20:22:48 06/11/20 24 06/11/2024 TSH thyroid-stim ulating hormone 0.850 uIU/m L 0.465- 4.680 Not Available [facility] (Lab) [address] [place], [address], 06/11/2024 20:34:56 06/11/20 24 06/11/2024 HEMOG LOBIN A1C HA1C 5.7 % 4.0-6. 0 Diabe leola Scree barb Crite chiki: <5.7% Consi stent with absen ce of diabe leola 5.7-6 .4% Consi stent with incre ased risk for diabe leola (pred iabet es) >OR=6 .5% Consi stent with diabe leola REFER ENCE: Diabe leola Care 2015, 39(Mcginnis ppl.1 ):s13 -s22 Not Available [facility] (Lab) [address] [place], [address], 06/11/2024 20:43:02 10/02/20 24 10/02/2024 COMPR EHENS LEXIE METAB OLIC PANEL sodium 135 mmol/ L 137-14 5 low Not Available [facility] (Lab) [address] [place], [address], 10/02/2024 19:22:37 10/02/20 24 10/02/2024 COMPR EHENS LEXIE METAB OLIC PANEL potassium 4.0 mmol/ L 3.5-5. 1 Not Available [facility] (Lab) [address] [place], [address], 10/02/2024 19:22:37 10/02/20 24 10/02/2024 COMPR EHENS LEXIE METAB OLIC PANEL chloride 109 mmol/ L 98-107 high Not Available [facility] (Lab) [address] [place], [address], 10/02/2024 19:22:37 10/02/20 24 10/02/2024 COMPR EHENS LEXIE METAB OLIC PANEL carbon dioxide 23 mmol/ L 22-30 Not Available [facility] (Lab) [address] [place], [address], 10/02/2024 19:22:37 10/02/20 24 10/02/2024 COMPR EHENS LEXIE METAB OLIC PANEL anion gap 7.0 mmol/ L 14-22 low Not Available [facility] (Lab) [address] [place], [address], 10/02/2024 19:22:37 10/02/20 24 10/02/2024 COMPR EHENS LEXIE METAB OLIC PANEL glucose 105 mg/dL 70-99 high Not Available [facility] (Lab) [address] [place], [address], 10/02/2024 19:22:37 10/02/20 24 10/02/2024 COMPR EHENS LEXIE METAB OLIC PANEL BUN 22 mg/dL 8-19 high Not Available [facility] (Lab) [address] [place], [address], 10/02/2024 19:22:37 10/02/20 24 10/02/2024 COMPR EHENS LEXIE METAB OLIC PANEL creatinine 1.19 mg/dL 0.66-1 .25 Not Available [facility] (Lab) [address] [place], [address], 10/02/2024 19:22:37 10/02/20 24 10/02/2024 COMPR EHENS LEXIE METAB OLIC PANEL GFR 44 Refer ence Range : Nelson ge GFR Healt hy Adult : >60 mL/mi n/1.7 3 m2 Chron ic Kidne y Disea se: 15-60 mL/mi n/1.7 3 m2 Kidne y Failu re: <15/m L/min /1.73 m2 www.n iddk. nih.g ov The MDRD study equat ion has not been valid ated in child glen <18 years of age; pregn ant women ; the elder ly >85 years of age; or in some racia l or ethni c subgr oups, such as Hispa nics. Outsi de the valid ated zully eters , estim ated GFR is less accur ate, requi ring clini nader judgm ent on a case- by-ca se basis . Clini nader inter preta tion for other races and ages must be made by the clini george. The MDRD study equat ion has not been valid ated for the evalu ation of serum creat inine relat ed to nutri talita l statu s or medic ation usage . For perso ns <18 years of age, a pedia tric GFR calcu lator is avail able on the [facility] websi te: https ://veronica aquino.henry honeycutt.o rg/pr keiryess esteeal s/kdo qi/gf r_cal culat or Not Available [facility] (Lab) [address] [place], [address], 10/02/2024 19:22:37 10/02/20 24 10/02/2024 COMPR EHENS LEIXE METAB OLIC PANEL alkaline phosphatase 89 U/L 38-126 Not Available [facility] (Lab) [address] [place], [address], 10/02/2024 19:22:37 10/02/20 24 10/02/2024 COMPR EHENS LEXIE METAB OLIC PANEL alanine aminotransfe rase 18 U/L 0-35 Not Available [facility] (Lab) [address] [place], [address], 10/02/2024 19:22:37 10/02/20 24 10/02/2024 COMPR EHENS LEXIE METAB OLIC PANEL aspartate aminotransfe rase 30 U/L 15-37 Not Available [facility] (Lab) [address] [place], [address], 10/02/2024 19:22:37 10/02/20 24 10/02/2024 COMPR EHENS LEXIE METAB OLIC PANEL bilirubin, total 0.70 mg/dL 0.20-1 .30 Not Available [facility] (Lab) [address] [place], [address], 10/02/2024 19:22:37 10/02/20 24 10/02/2024 COMPR EHENS LEXIE METAB OLIC PANEL calcium 9.4 mg/dL 8.4-10 .2 Not Available [facility] (Lab) [address] [place], [address], 10/02/2024 19:22:37 10/02/20 24 10/02/2024 COMPR EHENS LEXIE METAB OLIC PANEL total protein 6.8 g/dL 6.3-8. 2 Not Available [facility] (Lab) [address] [place], [address], 10/02/2024 19:22:37 10/02/20 24 10/02/2024 COMPR EHENS LEXIE METAB OLIC PANEL albumin 4.1 g/dL 3.0-4. 4 Not Available [facility] (Lab) [address] [place], [address], 10/02/2024 19:22:37 10/02/20 24 10/02/2024 COMPR EHENS LEXIE METAB OLIC PANEL globulin 2.7 g/dL 2.6-4. 2 Not Available [facility] (Lab) [address] [place], [address], 10/02/2024 19:22:37 10/02/20 24 10/02/2024 COMPR EHENS LEXIE METAB OLIC PANEL A/G ratio 1.5 ratio 1.0-2. 0 Not Available [facility] (Lab) [address] [place], [address], 10/02/2024 19:22:37 10/02/20 24 10/03/2024 BASIC METAB OLIC PANEL sodium 135 mmol/ L 137-14 5 low Not Available [facility] (Lab) [address] [place], [address], 10/03/2024 11:10:02 10/02/20 24 10/03/2024 BASIC METAB OLIC PANEL potassium 4.0 mmol/ L 3.5-5. 1 Not Available [facility] (Lab) [address] [place], [address], 10/03/2024 11:10:02 10/02/20 24 10/03/2024 BASIC METAB OLIC PANEL chloride 109 mmol/ L 98-107 high Not Available [facility] (Lab) [address] [place], [address], 10/03/2024 11:10:02 10/02/20 24 10/03/2024 BASIC METAB OLIC PANEL carbon dioxide 23 mmol/ L 22-30 Not Available [facility] (Lab) [address] [place], [address], 10/03/2024 11:10:02 10/02/20 24 10/03/2024 BASIC METAB OLIC PANEL anion gap 7.0 mmol/ L 14-22 low Not Available [facility] (Lab) [address] [place], [address], 10/03/2024 11:10:02 10/02/20 24 10/03/2024 BASIC METAB OLIC PANEL glucose 105 mg/dL 70-99 high Not Available [facility] (Lab) [address] [place], [address], 10/03/2024 11:10:02 10/02/20 24 10/03/2024 BASIC METAB OLIC PANEL BUN 22 mg/dL 8-19 high Not Available [facility] (Lab) [address] [place], [address], 10/03/2024 11:10:02 10/02/20 24 10/03/2024 BASIC METAB OLIC PANEL creatinine 1.19 mg/dL 0.66-1 .25 Not Available [facility] (Lab) [address] [place], [address], 10/03/2024 11:10:02 10/02/20 24 10/03/2024 BASIC METAB OLIC PANEL GFR 44 Refer ence Range : Nelson ge GFR Healt hy Adult : >60 mL/mi n/1.7 3 m2 Chron ic Kidne y Disea se: 15-60 mL/mi n/1.7 3 m2 Kidne y Failu re: <15/m L/min /1.73 m2 www.n iddk. nih.g ov The MDRD study equat ion has not been valid ated in child glen <18 years of age; pregn ant women ; the elder ly >85 years of age; or in some racia l or ethni c subgr oups, such as ut nics. Outsi de the valid ated zully eters , estim ated GFR is less accur ate, requi ring clini nader judgm ent on a case- by-ca se basis . Clini nader inter preta tion for other races and ages must be made by the clini george. The MDRD study equat ion has not been valid ated for the evalu ation of serum creat inine relat ed to nutri talita l statu s or medic ation usage . For perso ns <18 years of age, a pedia tric GFR calcu lator is avail able on the F websi te: https ://veronica w.henry honeycutt.o rg/pr ofess ional s/kdo qi/gf r_cal culat or Not Available [facility] (Lab) [address] [place], [address], 10/03/2024 11:10:02 10/02/20 24 10/03/2024 BASIC METAB OLIC PANEL calcium 9.4 mg/dL 8.4-10 .2 Not Available [facility] (Lab) [address] [place], [address], 10/03/2024 11:10:02 01/31/20 25 01/30/2025 BASIC METAB OLIC PANEL sodium 137 mmol/ L 137-14 5 Not Available [facility] (Lab) [address] [place], [address], 01/30/2025 18:34:24 01/31/20 25 01/30/2025 BASIC METAB OLIC PANEL potassium 4.6 mmol/ L 3.5-5. 1 Not Available [facility] (Lab) [address] [place], [address], 01/30/2025 18:34:24 01/31/20 25 01/30/2025 BASIC METAB OLIC PANEL chloride 103 mmol/ L 98-107 Not Available [facility] (Lab) [address] [place], [address], 01/30/2025 18:34:24 01/31/20 25 01/30/2025 BASIC METAB OLIC PANEL carbon dioxide 27 mmol/ L 22-30 Not Available [facility] (Lab) [address] [place], [address], 01/30/2025 18:34:24 01/31/20 25 01/30/2025 BASIC METAB OLIC PANEL anion gap 11.6 mmol/ L 14-22 low Not Available [facility] (Lab) [address] [place], [address], 01/30/2025 18:34:24 01/31/20 25 01/30/2025 BASIC METAB OLIC PANEL glucose 102 mg/dL 70-99 high Not Available [facility] ([facility]) [address] [place], [address], 01/30/2025 18:34:24 01/31/20 25 01/30/2025 BASIC METAB OLIC PANEL BUN 15 mg/dL 8-19 Not Available [facility] (Lab) [address] [place], [address], 01/30/2025 18:34:24 01/31/20 25 01/30/2025 BASIC METAB OLIC PANEL creatinine 1.15 mg/dL 0.66-1 .25 Not Available [facility] (Lab) [address] [place], [address], 01/30/2025 18:34:24 01/31/20 25 01/30/2025 BASIC METAB OLIC PANEL GFR 46 Refer ence Range : Nelson ge GFR Healt hy Adult : >60 mL/mi n/1.7 3 m2 Chron ic Kidne y Disea se: 15-60 mL/mi n/1.7 3 m2 Kidne y Failu re: <15/m L/min /1.73 m2 www.n iddk. nih.g ov The MDRD study equat ion has not been valid ated in child glen <18 years of age; pregn ant women ; the elder ly >85 years of age; or in some racia l or ethni c subgr oups, such as ut nics. Outsi de the valid ated zully eters , estim ated GFR is less accur ate, requi ring clini nader judgm ent on a case- by-ca se basis . Clini nader inter preta tion for other races and ages must be made by the clini george. The MDRD study equat ion has not been valid ated for the evalu ation of serum creat inine relat ed to nutri talita l statu s or medic ation usage . For perso ns <18 years of age, a pedia tric GFR calcu lator is avail able on the F websi te: https ://veronica w.henry honeycutt.o rg/pr ofess ional s/kdo qi/gf r_cal culat or Not Available [facility] (Lab) [address] [place], [address], 01/30/2025 18:34:24 01/31/2001/30/2025 BASIC METAB OLIC PANEL calcium 9.7 mg/dL 8.4-10 .2 Not Available [facility] (Lab) [address] [place], [address], 01/30/2025 18:34:24 06/12/20 24 03/22/2024 DEXA, axial skele ton No observ ation record ed. Not Available 2023 09:14:36 06/12/20 24 03/22/2024 MAMMO , scree barb, digit al, bilat eral No observ ation record ed. Not Available 2023 09:14:36 Result Notes None recorded. Problems Name Problem SNOMED Code Status Onset Date Resolution Date Notes Provider Name and Address Organization Details Recorded Time Cardiac arrhythmia 797373100 Active 2022 Danna Aiken CMA null, [facility] 3 15:31:20 Electrocar diogram abnormal 049924441 Active 2022 Tata Vasques LPN null, [facility] 3 15:46:57 COVID-19 099779429 Active 2022 Angelita Kelly MD [address] [facility], [address], [place], [address] , [facility] 3 10:57:27 Kidney disease 79189448 Active 2023 Angelita Kelly MD [address] [facility], [place], [address] , [facility] 4 09:04:13 Renewal of prescripti on Completed 202104/15/2022 Not Available [facility] 3 03:26:42 Screening mammograph y Completed 202104/15/2022 Not Available [facility] 3 03:26:42 Basal cell carcinoma of skin 270901711 Active 2020 Not Available [facility] 3 03:26:42 Long-term drug therapy Completed 202104/15/2022 Not Available [facility] 3 03:26:42 Long-term drug therapy Completed 202001/27/2021 Not Available [facility] 3 03:26:42 Adult health examinatio n Active 2021 Not Available [facility] 3 03:26:42 Low back pain 434758089 Active 2021 Not Available [facility] 3 03:26:42 Screening for osteoporos is Active 2022 Not Available [facility] 3 03:26:42 Screening for disorder Completed 202104/15/2022 Not Available [facility] 3 03:26:42 Osteopenia 811811421 Active 2017 Not Available [facility] 3 03:26:42 Hypothyroi dism 07315955 Active 2018 Not Available [facility] 3 03:26:42 Obesity 065772588 Active 2018 Not Available [facility] 3 03:26:43 Onychomyco sis 540911953 Completed 202104/15/2022 Not Available [facility] 3 03:26:43 Essential hypertensi on 58142372 Active 2018 Not Available [facility] 3 03:26:43 Hyperglyce stevo 42439987 Active 2018 Not Available [facility] 3 03:26:43 Gout 40314501 Active 2018 Not Available [facility] 3 03:26:43 Upper respirator y infection 94790206 Active 2024 Angelita Kelly MD [address] [place] [address], [facility] [address], [place], [address] , [facility] 5 09:20:38 Problem Notes None recorded. Procedures Surgical History Date Name Laterality Status Provider Name and Address Organization Details Recorded Time 06/11/20 24 Medicare Wellness CPT Code, subsequent completed Gisselle Wang RN [facility] 06/11/2024 09:50:56 04/18/20 23 Medicare Wellness CPT Code, subsequent completed Brynn Nobles RN [facility] 04/18/2023 14:51:46 10/28/19 21 Most Recent Bone Density completed Not Available [facility] 12/21/2022 03:18:51 10/23/19 20 Thyroid Surgery completed Not Available [facility] 10/2022 03:18:52 01/05/20 13 Date of Last Colonoscopy completed Not Available [facility] 12/21/2022 03:18:51 10/23/19 09 Arthroscopy completed Not Available [facility] 12/22/19 03:18:52 Tonsillectomy completed Not Available [facility] 12/21/2022 03:18:52 Imaging Results None recorded. Procedure Notes None recorded. Medical Equipment None Reported. Allergies Allergen ID Allergen Name Allergen Category Reaction Reaction Severity Criticality Documentation Date Start Date Code Code System Note Provider Name and Address Organization Details Recorded Time 6363 Substance with sulfonami de structure and antibacte rial mechanism of action (substanc e) medicatio n Not available Not available Not available 12/21/2022 35574 8003 SNOMED Not Available [facility] 03:35:32 Medications Name Sig Start Date Stop Date Status Note LastModified by Organization Details LastModified Time losartan 50 mg tablet 09/25 completed Not Available Not Available Not Available amoxicill in 500 mg capsule Take 1 capsule every 8 hours by oral route. 2024 active Not Available Not Available Not Avai lable doxycycli ne hyclate 100 mg capsule Take 1 capsule twice a day by oral route. active Not Available Not Available No t Available ofloxacin 0.3 % eye drops 12/14 completed Not Available Not Available Not Available benzonata te 200 mg capsule Take 1 capsule 3 times a day by oral route. 02/06 completed Not Available Not Available Not Available Synthroid 125 mcg tablet Take 1 tablet by mouth everyday 2024 active [facility] 01/30/25 NOV 06/05/25 ok to rf Not Available Not Available Not Available ciproflox acin 250 mg tablet TAKE ONE TABLET TWICE DAILY FOR 5 DAYS UNTIL ALL TAKEN 10/31 completed Not Available Not Available Not Available allopurin ol 100 mg tablet Take 2 tablets every day by oral route. 2023 active Not Available Not Available Not Avai lable ketorolac 0.5 % eye drops 12/14 completed Not Available Not Available Not Available cefadroxi l 500 mg capsule 09/25 completed Not Available Not Available Not Available meloxicam 7.5 mg tablet Take 1 tablet every day by oral route as needed. 06/13 completed Stopped due to kidney function to take Tylenol artritis TID Not Available Not Available Not Available terbinafi ne HCl 250 mg tablet TK 1 T PO QD active Not Available Not Available No t Available prednisol one acetate 1 % eye drops,wilbur pension 12/14 completed Not Available Not Available Not Available indometha cj 50 mg capsule 09/25 completed Not Available Not Available Not Available allopurin ol 300 mg tablet TAKE 1 TABLET BY MOUTH EVERY DAY 05/12 completed Not Available Not Available Not Available losartan 100 mg tablet TAKE ONE TABLET DAILY 2024 active DENA 01/30/25 NOV 06/05/25 ok to rf Not Available Not Available Not Available doxycycli ne hyclate 100 mg tablet 06/04 completed Not Available Not Available Not Available Calcium 500 + D 500 mg-5 mcg (200 unit) tablet Take 1 tablet twice a day by oral route. active Not Available Not Available No t Available Calcium 500 + D (D3) 1 tab daily 06/04 completed Not Available Not Available Not Available dapaglifl ozin propanedi ol 10 mg tablet Take 1 tablet every day by oral route for 90 days. 2024 active Not Available Not Available Not Avai lable Flublok Quad (PF) 180 mcg (45 mcg x 4)/0.5 mL IM syringe PHARMACI ST ADMINIST ERED IMMUNIZA TION ADMINIST ERED AT TIME OF DISPENSI NG 10/31 completed Not Available Not Available Not Available Fluad Quad (65yr up)(PF) 60 mcg (15 mcg x 4)/0.5mL IM syringe ADM 0.5ML IM UTD active Not Available Not Available No t Available Vitals Date Recorded Body height Body mass index (BMI) Body weight Body temperature Heart rate Oxygen saturation Oxygen saturation in Arterial blood by Pulse oximetry Systolic And Diastolic Provider Name and Address Organization Details Last Updated DateTime 5 165.1 cm 37.6 kg/m2 325329. 88 g 97 [degF] 85 /min 97 % 97 % 128/76 mm[Hg] LOUANN Damian [facility] 5 09:03:05 Date Recorded Body height Body mass index (BMI) Body weight Body temperature Heart rate Oxygen saturation Oxygen saturation in Arterial blood by Pulse oximetry Systolic And Diastolic Provider Name and Address Organization Details Last Updated DateTime 4 165.1 cm 39.4 kg/m2 259581. 39 g 97.7 [degF] 72 /min 97 % 97 % 122/78 mm[Hg] Brynn alexandra [facility] 4 10:16:29 Date Recorded Body height Body mass index (BMI) Body weight Body temperature Heart rate Oxygen saturation Oxygen saturation in Arterial blood by Pulse oximetry Systolic And Diastolic Provider Name and Address Organization Details Last Updated DateTime 4 165.1 cm 38.6 kg/m2 086317. 43 g 98.3 [degF] 73 /min 97 % 97 % 128/78 mm[Hg] Aleta Hagan [facility] 4 09:29:41 Date Recorded Body height Body mass index (BMI) Body weight Body temperature Heart rate Oxygen saturation Oxygen saturation in Arterial blood by Pulse oximetry Systolic And Diastolic Provider Name and Address Organization Details Last Updated DateTime 3 165.1 cm 39.8 kg/m2 395853. 01 g 96.6 [degF] 73 /min 98 % 98 % 140/80 mm[Hg] Amparo Marcial [facility] 3 10:19:24 Date Recorded Body height Body mass index (BMI) Body weight Body temperature Heart rate Systolic And Diastolic Provider Name and Address Organization Details Last Updated DateTime 4 165.1 cm 38.4 kg/m2 154588. 84 g 82 [degF] 98 /min 134/80 mm[Hg] Leticia Aldridge taras, [facility] 09:07:38 Social History Question Answer Notes LastModified by Organization Details LastModified Time Tobacco Smoking Status Former Smoker quit 1998 Not Available [facility] 12/21/2022 03:17:57 Do You Have An Advance Directive? Yes Requested Bring A Copy At Next Visit (06/11/2024) [email or web address] Information not available 06/11/2024 How Many Years Have You Consumed Alcohol? [age]y/o Start [email or web address] Information not available 06/11/2024 Are You Blind Or Do You Have Difficulty Seeing? No MIGRATION.441 [id number] Information not available 12/21/2022 Is Blood Transfusion Acceptable In An Emergency? Yes [email or web address] Information not available 06/11/2024 What Is Your Level Of Caffeine Consumption? Heavy [email or web address] Information not available 06/11/2024 What Is Your Code Status? Other [email or web address] Information not available 06/11/2024 In The 14 Days Before Symptom Onset, Have You Had Close Contact With A Laboratory-conf irmed COVID-19 While That Case Was Ill? No Not Applicable [email or web address] Information not available 06/11/2024 In The 14 Days Before Symptom Onset, Have You Had Close Contact With A Person Who Is Under Investigation For COVID-19 While That Person Was Ill? No Not Applicable [email or web address] Information not available 06/11/2024 What Type Of Diet Are You Following? REGULAR MIGRATION.698 [id number] Information not available 12/21/2022 Which Illicit Or Recreational Drugs Have You Used? Not Applicable [email or web address] Information not available 06/11/2024 What Is The Highest Grade Or Level Of School You Have Completed Or The Highest Degree You Have Received? GE85011-5 [email or web address] Information not available 06/11/2024 How Many Days Of Moderate To Strenuous Exercise, Like A Brisk Walk, Did You Do In The Last 7 Days? 1 [email or web address] Information not available 06/11/2024 On Those Days That You Engage In Moderate To Strenuous Exercise, How Many Minutes, On Average, Do You Exercise? 20 [email or web address] Information not available 06/11/2024 Have There Been Any Changes To Your Family Or Social Situation? No [email or web address] Information not available 06/11/2024 What Is The Fluoride Status Of Your Home? Fluoridated MIGRATION.641 [id number] Information not available 12/21/2022 When Did You Quit Smoking? 16+yearssincelastc igarette [email or web address] Information not available 04/18/2023 Are There Any Guns Present In Your Home? No [email or web address] Information not available 06/11/2024 Do You Use Insect Repellent Routinely? No [email or web address] Information not available 06/11/2024 Where Do You Live? SingleLevelHouse MIGRATION.639 [id number] Information not available 12/21/2022 Advance Directive- Providers Has Reviewed Directive And Consents To Follow Them (insert Provider Name With Any Objectives In Notes Field) Yes [email or web address] Information not available 04/18/2023 Presence Of Domestic Violence No [email or web address] Information not available 04/18/2023 Guns Present In The Home? No [email or web address] Information not available 06/11/2024 Are You Able To Care For Yourself? Yes [email or web address] Information not available 04/18/2023 Are You Blind Or Do Yo Have Difficulty Seeing? No [email or web address] Information not available 04/18/2023 Are You Deaf Or Do You Have Serious Difficulty Hearing? No [email or web address] Information not available 04/18/2023 General Stress Level? Moderate Information not available 04/18/2023 Live Alone Of With Others? With Others [email or web address] Information not available 04/18/2023 Do You Have A Medical Power Of Palletizer Operator? Yes [email or web address] Information not available 06/11/2024 What Was The Date Of Your Most Recent Tobacco Screening? 06/11/2024 [email or web address] Information not available 06/11/2024 How Many Children Do You Have? 6 [email or web address] Information not available 06/11/2024 What Is Your Current Pack Years? 10-19packyears [email or web address] Information not available 04/18/2023 Have You Ever Been Counseled For Unhealthy Alcohol Use? No [email or web address] Information not available 06/11/2024 Do You Have Any Pets? No [email or web address] Information not available 06/11/2024 Do You Use Protection During Sex? No [email or web address] Information not available 06/11/2024 What Is Your Relationship Status? MIGRATION.320 [id number] Information not available 12/21/2022 Do You Use Your Seat Belt Or Car Seat Routinely? Yes MIGRATION.875 [id number] Information not available 12/21/2022 Are You Sexually Active? Yes [email or web address] Information not available 06/11/2024 Do You Have Smoke And Carbon Monoxide Detectors In Your Home? Yes MIGRATION.723 [id number] Information not available 12/21/2022 At What Age Did You Start Smoking Tobacco? 23 MIGRATION.928 [id number] Information not available 12/21/2022 Are You Passively Exposed To Smoke? No [email or web address] Information not available 06/11/2024 Are There Any Smokers In Your House? No [email or web address] Information not available 06/11/2024 How Much Tobacco Do You Smoke? 0.5 PPD MIGRATION.734 [id number] Information not available 12/21/2022 What Types Of Sporting Activities Do You Participate In? None [email or web address] Information not available 06/11/2024 Do You Use Sunscreen Routinely? Yes MIGRATION.716 [id number] Information not available 12/21/2022 Has Tobacco Cessation Counseling Been Provided? No [email or web address] Information not available 06/11/2024 How Many Years Have You Smoked Tobacco? 31 [email or web address] Information not available 06/11/2024 Have You Recently Traveled Abroad? No [email or web address] Information not available 06/11/2024 Do You Have Difficulty Walking Or Climbing Stairs? Yes Stairs, Hold Rail For Safety After Bilateral Knee Replacement [email or web address] Information not available 06/11/2024 Do You Have Any Dietary Restrictions? No [email or web address] Information not available 06/11/2024 How Many Days In The Past Year Have You Consumed 4 Or More Drinks? 0 [email or web address] Information not available 06/11/2024 Sex: Unknown Functional Status Question Answer Note LastModified by Organizat ion Details LastModified Time Do you or have you ever used smokeless tobacco? Never used smokeless tobacco MIGRATION.388135 [id number] Information not available 12/21/2022 Are you currently employed? No [email or web address] Information not available 06/11/2024 Do you have transportation difficulties? No MIGRATION.[id number] 2057 Information not available 12/21/2022 Are you able to care for yourself? Yes MIGRATION.562121 3266 Information not available 12/21/2022 Do you have difficulty dressing or bathing? No MIGRATION.241212 9383 Information not available 12/21/2022 Do you or have you ever used e-cigarettes or vape? Never used electronic cigarettes MIGRATION.584886 6164 Information not available 12/21/2022 What is your exercise level? Occasional MIGRATION.577188 6924 Information not available 12/21/2022 Do you use any illicit or recreational drugs? No [email or web address] Information not available 06/11/2024 Do you or have you ever used any other forms of tobacco or nicotine? No [email or web address] Information not available 06/11/2024 What is your level of alcohol consumption? Occasional MIGRATION.250020 3564 Information not available 12/21/2022 Are you able to walk? YESWOREST MIGRATION.038702 1739 Information not available 12/21/2022 Do you have difficulty doing errands alone? No MIGRATION.562959 4467 Information not available 12/21/2022 What is your occupation? retired MIGRATION.148343 1404 Information not available 12/21/2022 Mental Status Question Answer Note LastModified by Organizat ion Details LastModified Time Do you feel stressed (tense, restless, nervous, or anxious, or unable to sleep at night)? [id number] MIGRATION.[id number] 26 Information not available 12/21/2022 Do you have difficulty concentrating, remembering or making decisions? No MIGRATION.84715533 26 Information not available 12/21/2022 Family History Relationship Description Onset Age of this Age Resolved Age Notes LastModified by Organization Details LastModified Time Father Alzheimer's disease MIGRATION.225 [id number] Not available 12/21/2022 03:19:00 Father Malignant neoplasm of prostate MIGRATION.044 [id number] Not available 12/21/2022 03:19:00 Medical History No medical history recorded. Gynecological History Statement/Question Response Date of Last Mammogram 10/28/2021 Date of Last Colonoscopy 01/04/2013 Most Recent Bone Density 10/28/2020 Obstetrics History GPAL:G 0 P 0 0 0 0 Immunizations Vaccine Type Date Status Note Provider Nam javier and Address Organization Details Recorded Time Influenza, high-dose, quadrivalent, PF 2 completed Not Available [facility] 12/21/2022 03:35:22 Influenza, split virus, quadrivalent, preservative 1 completed Brynn Mariee, TONG HOOKER null, [facility] 02/07/2024 10:16:34 SARS-COV-2 (COVID-19) vaccine, UNSPECIFIED 1 completed Brynn Mariee CMA null, [facility] 02/07/2024 10:16:34 SARS-COV-2 (COVID-19) vaccine, UNSPECIFIED 1 completed Brynn Mariee CMA null, [facility] 02/07/2024 10:16:34 Influenza, split virus, trivalent, preservative 7 completed Not Available [facility] 12/21/2022 03:35:23 COVID-19, mRNA, LNP-S, PF, 100 mcg/0.5mL dose or 50 mcg/0.25mL dose 2 completed Brynn Mariee CMA null, [facility] 02/07/2024 10:16:34 Influenza, high-dose, quadrivalent, PF 0 completed Brynn Mariee CMA null, [facility] 02/07/2024 10:16:34 Influenza, high-dose, trivalent, PF 9 completed Brynn Mariee CMA null, [facility] 02/07/2024 10:16:34 Influenza, high-dose, quadrivalent, PF 3 completed Angelita Kelly MD [address], [place], [address], [facility] 09/27/2023 10:45:34 Influenza, high-dose, trivalent, PF 4 completed Angelita Kelly MD [address], [place], [address], [facility] 10/02/2024 13:04:01 Past Encounters Encounter ID Performer Location Encounter Start Date Encounter Closed Date Diagnosis/Indication Diagnosis SNOMED-CT Code Diagnosis ICD10 Code Diagnosis Note [id number] Angelita Kelly MD [facility] Internal Med [facility] [address] [facility] [place] [id number] 01/27/2021 00:00:00 01/27/2021 10:19:02 [id number] Angelita Kelly MD [facility] [address] [place] [address] 05/12/2021 00:00:00 05/12/2021 13:07:46 [id number] Angelita Kelly MD [facility] [address] [place] [address] 06/25/2021 00:00:00 06/25/2021 10:19:53 [id number] MD ANGELIA [facility] [address] [facility] [place] [address] 12/17/2021 00:00:00 12/17/2021 13:27:31 [id number] MD ANGELIA [facility] [address] [facility] [place] [address] 04/19/2022 00:00:00 04/19/2022 10:06:31 [id number] Angelita Kelly MD [facility] [address] [facility] [place] [address] 08/10/2022 00:00:00 08/10/2022 10:01:41 [id number] Angelita Kelly MD [facility] [address] [facility] [place] [address] 10/25/2022 00:00:00 10/25/2022 10:49:57 [id number] MD SHEELA [facility]ello[facility] [address] [facility] [place] [address] 12/14/2022 00:00:00 12/14/2022 10:00:04 [id number] Angelita Kelly MD [facility] [address] [facility] [place] [address] 04/18/2023 14:29:49 04/18/2023 15:46:47 Essential hypertension 62102056 I10 under control Hypothyroidism 04829841 E03.9 under control, Gout 90285460 M10.9 no recent flare up Hyperglycemia 95108676 R 73.9 diet and exercise discussed Osteopenia 263133131 M85 .80 on ca with vit d, dexa 10/2020, wants to wait Basal cell carcinoma of skin 770863775 C44.91 no recurrence , sees derm every year Low back pain 245040710 M54.50 ot Adult heal th examination 295850187 Z00.00 Colonoscop y- 01/04/2013 - repeat 7-10 yrsDEXA- 10/2020Mam mogram-2021Has had both pneumovax had prevnarFLU - OV ID- #1- 12/09/20, #2- 01/11/21 Obesity 989314830 E66.9 advised to lose Postmenopausal state 764 68137 Z78.0 Screening for disorder 346081956 Z13.9 Screening mammography 24 946683 Z12.31 Cardiac arrhythmia 22161 7007 I49.9 EKG showed PVC's, no symptoms [id number] Angelita Kelly MD [facility] [facility] [address] [place] [address] 05/31/2023 10:18:11 05/31/2023 11:00:46 Cardiac arrhythmia 882295098 I49.9 EKG showed PVC's, no symptoms, all the w/u neg , watch [id number] Angelita Kelly MD [facility] [address] [facility] [place] [address] 09/27/2023 10:08:27 09/27/2023 10:59:22 Administration of influenza vaccine [id number] Z23 Essential hypertension 22500155 I10 under control Hypothyroidism 50988889 E03.9 under control, Gout 37903410 M10.9 no recent flare up Hyperglycemia 97568326 R 73.9 diet and exercise discussed Osteopenia 838047982 M85 .80 on ca with vit d, dexa 10/2020, wants to wait Basal cell carcinoma of skin 135692989 C44.91 no recurrence , sees derm every year Low back pain 831834254 M54.50 ot Adult heal th examination 622201202 Z00.00 Colonoscop y- 01/04/2013 - repeat 7-10 yrs DEXA- 10/2020 Mammogram- 05/2022 Has had both pneumovax had prevnar FLU- 07/2022 COVID- #1- 12/09/20, #2- 01/11/21 Obesity 223224623 E66.9 advised to lose Cardiac arrhythmia 47452 7007 I49.9 EKG showed PVC's, no symptoms, echo was nl Long-term drug therapy 294962516 Z79.899 COVID-19 293522570 U07.1 try cough meds [id number] Angelita Kelly MD [facility] [address] [facility] [place] [address] 02/07/2024 09:57:28 02/07/2024 10:55:28 Essential hypertension 26326425 I10 under control Hypothyroidism 71317031 E03.9 under control, Gout 81036858 M10.9 no recent flare up Hyperglycemia 46330561 R 73.9 diet and exercise discussed Osteopenia 532612639 M85 .80 on ca with vit d, dexa ordered Basal cell carcinoma of skin 799895930 C44.91 no recurrence , sees derm every year Low back pain 970526621 M54.50 otc Adult [facility] examination 760115742 Z00.00 Colonoscop y- 01/04/2013 , 03/01/23-nl DEXA- 10/2020, Scheduled for march 15 Mammogram- 05/2022, Scheduled for March 15 Has had both pneumovax had prevnar FLU- 07/2022, 10/14 COVID- #1- 12/09/20, #2- 01/11/21 Shingles, up to date Obesity 761579004 E66.9 advised to lose more Cardiac arrhythmia 38641 7007 I49.9 EKG showed PVC's, no symptoms, echo was nl [id number] Angelita Kelly MD [facility] [address] [facility] [place] [address] 06/11/2024 09:22:26 06/11/2024 10:22:57 Essential hypertension 10088424 I10 under control Hypothyroidism 78635127 E03.9 under control, Gout 58054596 M10.9 no recent flare up Hyperglycemia 09988013 R 73.9 diet and exercise discussed Osteopenia 230033708 M85 .80 on ca with vit d, dexa ordered Basal cell carcinoma of skin 149676189 C44.91 no recurrence , sees derm every year Low back pain 099621318 M54.50 otc Adult [facility] examination 856631317 Z00.00 Colonoscop y- 01/04/2013 , 03/01/23-nl DEXA- 10/2020, Scheduled for march 15 (Jean Marie- not in chart)Mamm ogram-05/24 022,Has had both pneumovax had prevnarFLU - 07/2022, 10/14COVID - #1- 12/09/20, #2- 01/11/21Sh ingles, up to date Obesity 941744490 E66.9 advised to lose more Cardiac arrhythmia 62654 7007 I49.9 EKG showed PVC's, no symptoms, echo was nl Screening for disorder 096485924 Z13.9 [id number] Angelita Kelly MD [facility] [address] [place] [address] 10/02/2024 09:03:44 10/02/2024 09:28:45 Essential hypertension 39237966 I10 under control Hypothyroidism 49147551 E03.9 under control, Gout 05323920 M10.9 no recent flare up Hyperglycemia 67862483 R 73.9 diet and exercise discussed Osteopenia 119224118 M85 .80 on ca with vit d, dexa ordered Basal cell carcinoma of skin 798525567 C44.91 no recurrence , sees derm every year Low back pain 797493017 M54.50 otc Obesity 991580088 E66.9 advised to lose more Adult heal th examination 491153034 Z00.00 Colonoscop y- 01/04/2013 , 03/01/23-nl DEXA- 03/22/2024 Mammogram- 03/22/2024 Has had both pneumovax had prevnarFLU - 10/02/2024 COVID- #1- 12/09/20, #2- 01/11/21Sh ingles, up to date Cardiac arrhythmia 07660 7007 I49.9 EKG showed PVC's, no symptoms, echo was nl Kidney disease 97582891 N08 drinking more water, to see nephrology if gets worse Administra tion of influenza vaccine 44994326 Z23 [id number] Angelita Kelly MD [facility] [address] [place] [address] 01/30/2025 08:54:05 01/30/2025 09:27:04 Essential hypertension 15385425 I10 under control Hypothyroidism 03288218 E03.9 under control, Gout 02611944 M10.9 no recent flare up Hyperglycemia 80859144 R 73.9 diet and exercise discussed Osteopenia 127200617 M85 .80 on ca with vit d, dexa ordered Basal cell carcinoma of skin 667974042 C44.91 no recurrence , sees derm every year Low back pain 143453352 M54.50 otc Obesity 790640228 E66.9 advised to lose more Adult heal th examination 781609137 Z00.00 Colonoscop y- 01/04/2013 , 03/01/23-nl DEXA- 03/22/2024 Mammogram- 03/22/2024 Has had both pneumovax had prevnarFLU - 10/02/2024 COVID- #1- 12/09/20, #2- 01/11/21Sh ingles, up to date Cardiac arrhythmia 86025 7007 I49.9 EKG showed PVC's, no symptoms, echo was nl Kidney disease 06181742 N08 drinking more water, to see nephrology if gets worse, start Farxiga Upper resp iratory infection 56387911 J06.9 sinusitis Health Concerns Section Related Observation LastModified by Organization Detai ls LastModified Time None Recorded Concern Status LastModified by Organization Details LastModified Time None Recorded Advance Directives Directive Y: requested bring a copy at next visit (06/11/2024) Payers Insurance Date Sequence Insurance Name Policy Number Policy Briscoe Covered Member ID Briscoe Member ID Guarantor Name 01/30/2025 1 [place] Deanna Loving [id number] Deanna Loving 02/10/2025 2 FOR LIFE ( - MEDICARE SUPPLEMENT) Deanna Leavitt Fabienne [id number] Deanna Leavitt Fabienne Notes Date Note Type Note Provider Name and Address Organization Details Recorded Time 09/27/2023 text/html she is here for routine f/u , Good compliance with meds, no side effects COVID 2 WEEKS AGO, still with mild cough, dryHTN- on meds and under controlMeds- Losartan 100 mg dailyHypothyroidism- s/p thyroidectomy due to benign nodules, seeing wafer substrate tester once a year, TSH nl 04/14Meds- Synthroid 125 mcg dailyObesity- advised to watch diet and lose weightGout- on meds, no recent flare up, uric acid nl 08/14Meds- Allopurinol 200 mg dailyHyperglycemia- watching diet,A1c was 5.8 (07/2022)Osteopenia- dexa 11/12, on vit d /calciumH/o skin cancer- no recurrence, seeing derm yearlyBack pain- tylenol prn, Angelita Kelly MD [address], [address], [place], [address], [employer] 09/27/2023 10:58:25 02/07/2024 text/html she is here for routine f/u , Good compliance with meds, no side effects HTN- on meds and under controlMeds- Losartan 100 mg dailyHypothyroidism- s/p thyroidectomy due to benign nodules, seeing wafer substrate tester once a year, TSH nl 04/14Meds- Synthroid 125 mcg dailyObesity- advised to watch diet and lose weight , lost 2 lbsGout- on meds, no recent flare up, uric acid nlMeds- Allopurinol 200 mg dailyHyperglycemia- watching diet,A1c was 5.8 (07/2022)Osteopenia- dexa 11/12, on vit d /calciumH/o skin cancer- no recurrence, seeing derm yearlyBack pain- tylenol prn, Toe nail onychomycosis- on meds fro podiatry Angelita Kelly MD [address], [address], [place], [address], [employer] 02/07/2024 10:54:04 06/11/2024 text/html she is here for routine f/u , Good compliance with meds, no side effects HTN- on meds and under controlMeds- Losartan 100 mg dailyHypothyroidism- s/p thyroidectomy due to benign nodules, seeing wafer substrate tester once a year, TSH dueMeds- Synthroid 125 mcg dailyObesity- advised to watch diet and lose weight , lost 5 lbsGout- on meds, no recent flare up, uric acid nlMeds- Allopurinol 200 mg dailyHyperglycemia- watching diet,A1c was 5.8 (07/2022)Osteopenia- dexa 11/12, on vit d /calciumH/o skin cancer- no recurrence, seeing derm yearlyBack pain- tylenol prn, Takes Meloxicam from ortho, wants us to refill Toe nail onychomycosis- on meds from podiatry Angelita Kelly MD [address] [facility], [address], [place], [address], [place] [employer] 06/11/2024 11:04:53 10/02/2024 text/html she is here for routine f/u , Good compliance with meds, no side effectsPT IS FASTING ( Medicare/[facility] for [facility] ) HTN- on meds and under controlMeds- Losartan 100 mg dailyHypothyroidism- s/p thyroidectomy due to benign nodules, seeing wafer substrate tester once a year, TSH nl 06/15Meds- Synthroid 125 mcg dailyObesity- advised to watch diet and lose weight ,Gout- on meds, no recent flare up, uric acid nlMeds- Allopurinol 200 mg dailyHyperglycemia- watching diet,A1c was 5.7 Kidney disease- GFR 49, has stopped taking meloxicamOsteopenia- dexa 11/12, on vit d /calcium , dexa 5/24H/o skin cancer- no recurrence, seeing derm yearlyosteoarthritis/B ack pain- tylenol prn, avoid NSAIDS Toe nail onychomycosis- on meds from podiatry Angelita Kelly MD [address] [facility], [address], [place], [address], [place] [employer] 10/02/2024 13:04:11 01/30/2025 text/html Upper Respirator y SymptomsReported bypatient.Location:hea d; throat Quality:productive cough;colored phlegm;congested Duration:symptoms lasting over 2 weeks; one week Context:no sick contacts; non-smoker Modifying Factors:OTC medication (not helping) Associated Symptoms:no shortness of breath; no wheezingNotes:No fever, post nasal drainage, No sinus headache, No ear pain She is here for routine f/u , Good compliance with meds, no side effectsPT IS FASTING ( Medicare/[facility] for [facility] ) HTN- on meds and under controlMeds- Losartan 100 mg dailyHypothyroidism- s/p thyroidectomy due to benign nodules, SEEING ENDO as well once a year, TSH nl 06/15, Dr Kirk, now seeing NPMeds- Synthroid 125 mcg dailyObesity- advised to watch diet and lose weight ,Gout- on meds, no recent flare up, uric acid nlMeds- Allopurinol 200 mg dailyHyperglycemia- watching diet,A1c was 5.7 (06/11/2024) Kidney disease- GFR 44 (10/02/24), has stopped taking meloxicam,Farxiga is not started yetOsteopenia- dexa 11/12, on vit d /calcium , dexa 5/24H/o skin cancer- no recurrence, seeing derm yearlyosteoarthritis/B ack pain- tylenol prn, avoid NSAIDS Toe nail onychomycosis- on meds from podiatry Angelita Kelly MD [address] [facility], [facility] [address], [place], [address], [place] [employer] 01/30/2025 09:25:32 OBGyn Episode No OBEpisode recorded.
--- OUTSIDE RECORDS SUMMARY | 2025-04-30 09:00 | XMS_ITS | Clinical Summary ---
Author Organization [facility] [address] [facility] [place] Address [address] [place] [address] Care Team Providers Care Revenue Enforcement Collection Agent Name Role Phone Sharan Bernstein MD Primary Care Provider [phone] Allergies Active Allergy Reactions Criticality Noted Date Comments Sulfa (Sulfonamide Antibiotics) Medications terbinafine (LamiSIL) 250 mg tablet Take 1 tablet (250 mg total) by mouth 7 pills a month 05/02/2019 Active cholecalciferol (VITAMIN D-3) 1,000 unit (25 mcg) tablet Take 1 tablet (1,000 Units total) by mouth daily Active calcium carbonate (CALCIUM 500 ORAL) Take 1,200 mg by mouth Active losartan (COZAAR) 100 mg tablet Take 1 tablet (100 mg total) by mouth daily 90 tablet 3 06/25/2019 Active allopurinoL (ZYLOPRIM) 100 mg tablet Take 2 tablets (200 mg total) by mouth daily 05/05/2021 Active levothyroxine (Synthroid) 125 mcg tablet Take 1 tablet (125 mcg total) by mouth daily 90 tablet 3 06/23/2022 Active acetaminophen (TYLENOL) 500 mg tablet Take 1 tablet (500 mg total) by mouth every 6 (six) hours as needed for pain Active Active Problems Problem Noted Date Diagnosed Date BMI 40.0-44.9, adult 06/06/2017 Assessment & Plan (06/25/2019 12:25 PM CDT): Diet and exercise were discussed. 1200 Calorie diet advised 45-60 min aerobic / resistance exercise most days of the week recommended. Morbid obesity 06/06/2017 Assessment & Plan (06/06/2017 9:14 AM CDT): Obesity is improving with lifestyle modifications. Discussed the patient's BMI. The BMI is above average; BMI management plan is completed. General weight loss/lifestyle modification strategies discussed (elicit support from others; identify saboteurs; non-food rewards, etc). Essential hypertension 06/06/2017 Assessment & Plan (06/25/2019 12:24 PM CDT): Low salt diet Exercise Check BMP rx for Losartan was sent. Assessment & Plan (06/06/2017 9:13 AM CDT): Hypertension is well controlled. Continue current treatment regimen. Blood pressure will be reassessed at the next regular appointment. 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 Currently taking levothyroxine 125mcg daily. Will update TFTs. Will update labs. Does not mychart. Verified phone #/address to contact re: results. Assessment & Plan (07/06/2023 10:10 AM CDT): Thyroid function tests, including TSH and free T4 were requested Will adjust dose of Levothyroxine accordingly . If there is a need to make changes, will recheck levels in 2-3 months. Instructions to patient on taking medication properly : in the morning, on an empty stomach , 1 h part from food and/or other meds. Assessment & Plan (06/23/2022 9:58 AM CDT): Thyroid function tests, including TSH and free T4 were requested Will adjust dose of Levothyroxine accordingly . If there is a need to make changes, will recheck levels in 2-3 months. Instructions to patient on taking medication properly : in the morning, on an empty stomach , 1 h part from food and/or other meds. Assessment & Plan (06/24/2021 10:17 AM CDT): Thyroid function tests, including TSH and free T4 were requested Will adjust dose of Levothyroxine accordingly . If there is a need to make changes, will recheck levels in 2-3 months. Instructions to patient on taking medication properly : in the morning, on an empty stomach , 1 h part from food and/or other meds. Assessment & Plan (06/25/2019 12:23 PM CDT): Will check TSH and free T4 Will adjust dose of Levothyroxine accordingly . If there is a need to make changes, will recheck levels in 2-3 months. Instructions to patient on taking medication properly : in the morning, on an empty stomach , 1 h part from food and/or other meds. If any doses are missed, can take 2-3 tab together ,to make up for the missed dose; make sure at the end to the week, 7 tabs have been taken. Assessment & Plan (05/31/2018 1:56 PM CDT): Will check TSH and free T4 Will adjust dose of Levothyroxine accordingly . If there is a need to make changes, will recheck levels in 2-3 months. Instructions to patient on taking medication properly : in the morning, on an empty stomach , 1 h part from food and/or other meds. If any doses are missed, can take 2-3 tab together ,to make up for the missed dose; make sure at the end to the week, 7 tabs have been taken. Assessment & Plan (06/06/2017 9:05 AM CDT): Check TSH, free T4 Adjust dose of Levothyroxine accordingly . 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 03/08/2014 05/31/2018 Overview (01/25/2017): TOX MULTNOD GOIT NO MIRANDA Surgical History Surgery Date Site/Laterality Comments HIP ARTHROPLASTY Hip replacement CHOLECYSTECTOMY Cholecystectomy OTHER SURGICAL HISTORY D&C KNEE ARTHROPLASTY Knee replacement Medical History Medical History Date Comments Disorder of thyroid Thyroid dise ase Hx Other Medical Claustrophobic; Comments: GFC 06/17/2014 - Family History Medical History Relation Name Comments Prostate cancer Father Cancer -pros martínez; Other Other No family histo ry of Diabetes mellitus; Relation Name Status Comments Father Other Social History Tobacco Use Types Packs/Day Years Used Date Smoking Tobacco: Former Smokeless Tobacco: Never Alcohol Use Standard Drinks/Week Comments No 0 (1 standard drink = 0.6 oz pur e alcohol) PHQ-2 Answer Date Recorded PHQ-2 Total Score (If total score is 3 or more points, staff should administer the PHQ-9) 0 06/23/2022 Comments Unknown Sex and Gender Information Value Date Recorded Sex Assigned at Not on file Legal Sex Female 10:35 AM TAX AGENT Gender Identity Not on file Sexual Orientation Not on file Obstetrics History Last Filed Vital Signs Vital Sign Reading Time Taken Comments Blood Pressure 128/72 12/05/2024 1:50 PM TAX AGENT Pulse 75 12/05/2024 1:06 PM TAX AGENT Temperature - - Respiratory Rate 16 12/05/2024 1:06 PM TAX AGENT Oxygen Saturation - - Inhaled Oxygen Concentration - - Weight 105.2 kg (232 lb) 12/05/2024 1:06 PM TAX AGENT Height 165.1 cm (5' 5) 12/05/2024 1:06 PM TAX AGENT Body Mass Index 38.61 12/05/2024 1:06 PM TAX AGENT Plan of Treatment Health Maintenance Due Date Last Done Comments Fall Risk Assessment 1945 Hepatitis C Screening 1945 Osteoporosis Screening-Bone Density Scan 1945 Hepatitis B Screening 1965 Well Visit 65+ 2012 Depression Screening 06/23/2023 06/23/2022, 06/25/2020, 06/25/2019, Additional history exists Covid-19 Vaccine (2023-2 5 season) 2024 01/11/2021, 12/09/2020 Influenza Vaccine (#1) 2025 , 08/07/2019, 08/13/2018, Additional history exists DTaP/Tdap/Td Vaccine (3 - Td or Tdap) 02/09/2032 02/08/2022, 08/23/2011 Pneumococcal vaccine 65+ Completed 09/29/2016, 03/2012 Zoster Vaccine Completed 05/30/2022, 01/21, 06/28/2012 Insurance MEDICARE [facility] MEDICARE [facility] Care Teams Revenue Enforcement Collection Agent Relationship Specialty Start Date End Date Sharan Bernstein MD PCP - General Internal Medicine 06/25/19
--- OUTSIDE RECORDS SUMMARY | 2025-04-30 09:00 | XMS_ITS | Clinical Summary ---
Author Organization [facility] Address [address] [place] [address] Care Team Providers Care Relationship Manager Name Role Phone Sharan Bernstein MD Primary Care Provider Source Comments [facility],non-owned Affiliates and Associated Physician Practices is amultiple site organization consisting of ambulatory clinics and hospital sitesin [place], [place], [place] and [place]. This disclosure is being madepursuant to the Care Everywhere program and may not contain all information available regarding this patient. Last updated 18.[facility] Allergies Active Allergy Reactions Criticality Noted Date Comments Sulfa Drugs Urticaria 10/19/2009 Medications * Be aware that medications may not be up to date on this document. Alwaysverify current medications with the patient. losartan (COZAAR) 100 MG tablet Take 100 mg by mouth once daily. Instructed to take AM of surgery Active chlorthalidone (HYGROTON) 25 MG tablet Take 25 mg by mouth once daily. Active acetaminophen (TYLENOL) 500 MG tablet Take 1 (one) tablet by mouth every 4 hours as needed Maximum allowable Acetaminophen amount = 4 Grams (4000 mg) / 24 hours. Active hydrocodone-ac etaminophen (NORCO) 5-325 MG tablet Take 1 Tab by mouth every 6 hours as needed for Pain. 30 Tab 0 1 Active Additional Information Patient not taking.Reported on 10/31/2023 allopurinol (Zyloprim) 100 MG tablet 3 Active Cholecalcifero l (Vitamin D-[address]) 25 MCG (1000 UT) Take 1 (one) tablet by mouth once daily Active levothyroxine (Synthroid) 125 MCG tablet Take on empty stomach.Take with plenty of water.Be careful if taking OTCs.Take or use exactly as directed. 2 Active losartan (Cozaar) 100 MG tablet Take 1 (one) tablet by mouth once daily 30 tablet 11 3 Active terbinafine (LamISIL) 250 MG tablet 3 Active meloxicam (Mobic) 15 MG tablet Take 1 (one) tablet by mouth once daily 30 tablet 5 4 Active Active Problems Problem Noted Date Diagnosed Date Presence of both artificial knee joints 11/01/19 24 Preoperative examination 10/19/2009 Social History Tobacco Use Types Packs/Day Years Used Date Smoking Tobacco: Former Cigarettes Comments:Quit smoking 2003 Alcohol Use Standard Drinks/Week Comments Yes 0 (1 standard drink = 0.6 oz pur e alcohol) occasional wine Comments Unknown Sex and Gender Information Value Date Recorded Sex Assigned at Not on file Legal Sex Female 8:17 AM MARITIME PILOT Gender Identity Not on file Sexual Orientation Not on file Last Filed Vital Signs Vital Sign Reading Time Taken Comments Blood Pressure 116/64 05/03/2011 6:14 AM CDT Pulse 51 05/03/2011 6:14 AM CDT Temperature 36.3 C (97.3 F) 05/03/2011 6:14 AM CDT Respiratory Rate 16 05/03/2011 6:14 AM CDT Oxygen Saturation 97% 05/03/2011 6:14 AM CDT Inhaled Oxygen Concentration - - Weight 104.3 kg (230 lb) 10/31/2023 11:02 AM MARITIME PILOT Height 162.6 cm (5' 4) 10/31/2023 11:02 AM MARITIME PILOT Body Mass Index 39.48 10/31/2023 11:02 AM MARITIME PILOT Plan of Treatment Health Maintenance Due Date Last Done Comments BONE DENSITY TESTING 1945 MEDICARE AWV 12 MONTHS 1945 HEPATITIS C SCREENING 03/24/1965 DTAP/TDAP/TD VACCINES (1 - Tdap) 1966 PNEUMOCOCCAL VACCINE 50+ (1 of 1 - PCV) 1997 ZOSTER VACCINE (1 of 2) 1997 Respiratory Syncytial Virus (RSV) Vaccine Pt: or over 60 yrs (1 - 1-dose 75+ series) 2022 COVID-19 VACCINE ( season) 2024 01/11/2021, 12/09/2020 DEPRESSION SCREENING 10/23/2024 INFLUENZA VACCINE (Season Ended) 2025 08/13/2018, 08/11/2017, 09/29/2016, Additional history exists HEPATITIS B VACCINE Aged Out No longe r eligible based on patient's age to complete this topic HIB VACCINE Aged Out No longer eligi ble based on patient's age to complete this topic HPV VACCINE Aged Out No longer eligi ble based on patient's age to complete this topic MENINGOCOCCAL (Group B) VACCINE SHARED DECISION-MAKING Aged Out No longer eligible based on patient's age to complete this topic MENINGOCOCCAL GROUPS A/C/Y/W VACCINE Aged Out No longer eligible based on patient's age to complete this topic Insurance MEDICARE [facility] [place] Advance Directives Documents on File Type Date Recorded Patient Magazine Writer Expl anation Adv Directive/Living Will/POA 12/28/2009 3:01 PM * FULL RESUSCITATION (Latest Code Status on File) Date Activated Date Inactivated Comments 05/02/2011 1:04 PM 05/03/2011 9:52 PM * Full Code Date Activated Date Inactivated Comments 02/24/2010 1:05 PM 02/28/2010 12:04 AM * Full Code Date Activated Date Inactivated Comments 11/25/2009 11:40 AM 11/28/2009 11:52 PM Care Teams Relationship Manager Relationship Specialty Start Date End Date Sharan Bernstein MD [address] [facility] [address] [place] [address] PCP - General Internal Medicine 10/31/23
--- OUTSIDE RECORDS SUMMARY | 2025-04-30 09:00 | XMS_ITS | Referral Summary ---
Author Organization [facility] [place] Address [address] [place] [address] Care Team Providers Care Colors Custodian Name Role Phone Sharan Bernstein MD Primary Care Provider [phone] Allergies Active Allergy Reactions Criticality Noted Date [...] HYPOTHYROID Assessment & Plan (12/05/2024 12:54 PM MEDIA BUYER): Chronic problem, unknown status. Currently taking levothyroxine [...] Overview (01/25/2017): TOX MULTNOD GOIT NO MIRANDA Social History Tobacco Use Types Packs/Day Years [...] on file Legal Sex Female 10:35 AM MEDIA BUYER Gender Identity Not on file Sexual Orientation Not on file Last Filed Vital Signs Vital Sign Reading Time Taken Comments Blood Pressure 128/72 12/05/2024 1:50 PM MEDIA BUYER Pulse 75 12/05/2024 1:06 PM MEDIA BUYER Temperature - - Respiratory Rate 16 12/05/2024 1:06 PM MEDIA BUYER Oxygen Saturation - - Inhaled Oxygen Concentration - - Weight 105.2 kg (232 lb) 12/05/2024 1:06 PM MEDIA BUYER Height 165.1 cm (5' 5) 12/05/2024 1:06 PM MEDIA BUYER Body Mass Index 38.61 12/05/2024 1:06 PM MEDIA BUYER Plan of Treatment Not on file Insurance MEDICARE [facility] Address: [address] [address] [employer] MEDICARE FOR LIFE Care Teams Colors Custodian Relationship Specialty Start Date End Date Sharan Bernstein MD PCP - General Internal Medicine 06/25/19
[2025-04-30 09:55] LABS: Alanine Aminotransferase 14 U/L (6-35); Albumin Level 3.9 g/dL (3.5-5.1); Alkaline Phosphatase 73 U/L (38-126); Anion Gap 7 mmol/L (4-12); Aspartate Amino Transferase 27 U/L (14-36); Bilirubin,Total 0.2 mg/dL (0.2-1.3); Blood Urea Nitrogen 19 mg/dL (7-17); Calcium 9.3 mg/dL (8.4-10.2); Carbon Dioxide 27 mmol/L (22-30); Chloride 105 mmol/L (98-107); Estimated Glomerular Filt Rate 54; Glucose 109 mg/dL (65-110); Potassium 4.0 mmol/L (3.4-5.0); Sodium 139 mmol/L (137-145); Total Protein 7.2 g/dL (6.3-8.2); Uric Acid 4.0 mg/dL (2.5-7.5)
== END 2025-04-30 08:44 | disposition home or self-care (01) ==
PROVIDERS: PCP Internal Medicine; Referring Provider Internal Medicine; Visit Provider Podiatrist Foot & Ankle Surgery
DX: M10.072 Idiopathic gout, left ankle and foot (principal)
CPT/HCPCS: 36415; 80053; 84550

== ENCOUNTER 2025-08-27 14:00 | Outpatient (CLI) | payer MEDICARE, OTHER, SELFPAY ==
--- NOTE | ~2025-08-27 | MM_ITS ---
EXAMINATION: MM screening [facility] BI w [facility] HISTORY: Screening TECHNIQUE: Craniocaudal and mediolateral oblique 3-D tomosynthesis images were obtained and synthetic 2-D images were generated. CAD analysis was submitted and interpreted. COMPARISON: Comparison to multiple prior studies sequentially, with oldest reviewed study dated 01/11/2018. BREAST PARENCHYMAL COMPOSITION: There are scattered areas of fibroglandular density. FINDINGS: There is no evidence of suspicious mass, calcification, or architectural distortion to suggest malignancy in either breast. Scattered benign-appearing calcifications are present. IMPRESSION: 1. No mammographic evidence of malignancy. 2. Recommend routine screening mammography in one year. BI-RADS Category 2: Benign finding(s). Reviewed, dictated and finalized at location A. AL PROFESSIONAL
--- OUTSIDE RECORDS SUMMARY | 2025-08-28 13:32 | XMS_ITS | Clinical Summary ---
Author Organization [facility] Address [address] [place] [address] Care Team Providers Care Clerical And Administrative Workers Name Role Phone Sharan Bernstein MD Primary Care Provider Source Comments [facility],non-owned Affiliates and Associated Physician Practices is amultiple site organization consisting of ambulatory clinics and hospital sitesin [place], [place], [place] and [place]. This disclosure is being madepursuant to the Care Everywhere program and may not contain all information available regarding this patient. Last updated 18.[facility] Allergies Active Allergy Reactions Criticality Noted Date [...] on file Legal Sex Female 8:17 AM INSTRUMENT AND CONTROL SERVICE PERSON Gender Identity Not on file Sexual Orientation [...] 104.3 kg (230 lb) 10/31/2023 11:02 AM INSTRUMENT AND CONTROL SERVICE PERSON Height 162.6 cm (5' 4) 10/31/2023 11:02 AM INSTRUMENT AND CONTROL SERVICE PERSON Body Mass Index 39.48 10/31/2023 11:02 AM INSTRUMENT AND CONTROL SERVICE PERSON Plan of Treatment Health Maintenance Due Date Last Done Comments BONE DENSITY TESTING 1945 MEDICARE AWV 12 MONTHS 1945 HEPATITIS C SCREENING 03/24/1965 DTAP/TDAP/TD VACCINES (1 - Tdap) 1966 PNEUMOCOCCAL VACCINE 50+ (1 of 1 - PCV) 1997 ZOSTER VACCINE (1 of 2) 1997 Respiratory Syncytial Virus (RSV) Vaccine Pt: or over 60 yrs (1 - 1-dose 75+ series) 2022 DEPRESSION SCREENING 10/23/2024 COVID-19 VACCINE ( season) 2025 01/11/2021, 12/09/2020 INFLUENZA VACCINE (#1) 2025 8, 08/11/2017, 09/29/2016, Additional history exists HEPATITIS B [...] age to complete this topic Insurance MEDICARE [facility] Advance Directives Documents on File Type Date Recorded Patient Nursing Educator Expl anation Adv Directive/Living Will/POA 12/28/2009 3:01 PM * FULL RESUSCITATION (Latest Code Status on File) Date Activated Date Inactivated Comments 05/02/2011 1:04 PM 05/03/2011 9:52 PM * Full Code Date Activated Date Inactivated Comments 02/24/2010 1:05 PM 02/28/2010 12:04 AM * Full Code Date Activated Date Inactivated Comments 11/25/2009 11:40 AM 11/28/2009 11:52 PM Care Teams Clerical And Administrative Workers Relationship Specialty Start Date End Date Sharan Bernstein MD [address] [place] [address] PCP - General Internal Medicine 10/31/23
--- OUTSIDE RECORDS SUMMARY | 2025-08-28 13:32 | XMS_ITS | Clinical Summary ---
Author Organization [facility] [place] [facility] [place] Address [address] [place] [address] Care Team Providers Care Rn Staff Name Role Phone Sharan Bernstein MD Primary Care Provider [phone]- [phone] Allergies Active Allergy Reactions Criticality Noted Date [...] HYPOTHYROID Assessment & Plan (12/05/2024 12:54 PM FISHING ROD MARKER): Chronic problem, unknown status. Currently taking levothyroxine [...] Overview (01/25/2017): TOX MULTNOD GOIT NO MIRANDA Encounters Date Type Department Care Team Description 08/26/2025 12:15 PM FISHING ROD MARKER Lab [address] [address] Postoperative hypothyroidism from Last 3 Months Surgical History Surgery Date Site/Laterality Comments HIP [...] on file Legal Sex Female 10:35 AM FISHING ROD MARKER Gender Identity Not on file Sexual Orientation Not on file Last Filed Vital Signs Vital Sign Reading Time Taken Comments Blood Pressure 128/72 12/05/2024 1:50 PM FISHING ROD MARKER Pulse 75 12/05/2024 1:06 PM FISHING ROD MARKER Temperature - - Respiratory Rate 16 12/05/2024 1:06 PM FISHING ROD MARKER Oxygen Saturation - - Inhaled Oxygen Concentration - - Weight 105.2 kg (232 lb) 12/05/2024 1:06 PM FISHING ROD MARKER Height 165.1 cm (5' 5) 12/05/2024 1:06 PM FISHING ROD MARKER Body Mass Index 38.61 12/05/2024 1:06 PM FISHING ROD MARKER Plan of Treatment Health Maintenance Due Date Last Done Comments Fall Risk Assessment 1945 Hepatitis C Screening 1945 Osteoporosis Screening-Bone Density Scan 1945 Hepatitis B Screening 1965 Well Visit 65+ 2012 Depression Screening 06/23/2023 06/23/2022, 06/25/2020, 06/25/2019, Additional history exists Covid-19 Vaccine (4 - 2024-2 6 season) 2025 02/21/2022, 01/11/2021, 12/09/2020 Influenza Vaccine (#1) 2025 , 06/22/2021, 07/08/2020, Additional history exists DTaP/Tdap/Td Vaccine (3 - Td or Tdap) 02/09/2032 02/08/2022, 08/23/2011 Pneumococcal vaccine 65+ Completed 09/29/2016, 03/2012 Zoster Vaccine Completed 05/30/2022, 01/21, 06/28/2012 Procedures Procedure Name Priority Date/Time Associated Diagnosis Comments TSH Routine 08/26/2025 12:25 PM FISHING ROD MARKER Postoperative hypothyroidism T4, FREE Routine 08/26/2025 12:25 PM FISHING ROD MARKER Postoperative hypothyroidism from Last 3 Months Results * (ABNORMAL) TSH (08/26/2025 12:25 PM FISHING ROD MARKER) Thyroid Stimulating Hormone 0.11(L) 0.30 - 4.20 mcIUnit/mL Blood 08/26/2025 12:2 5 PM FISHING ROD MARKER 08/26/2025 7:02 PM FISHING ROD MARKER us Valery Baum CONTRACT TECHNICIAN LAB BLOOD ORDERABLES Lula l Result Performing Organization Address City/[facility] Co de Phone Number BERENICE[facility] [address] [facility] [place] [address] * (ABNORMAL) T4, free (08/26/2025 12:25 PM FISHING ROD MARKER) Free T4 1.87(H) 0.90 - 1.70 ng/dL Blood 08/26/2025 12:2 5 PM FISHING ROD MARKER 08/26/2025 7:02 PM FISHING ROD MARKER us Valery Baum CONTRACT TECHNICIAN LAB BLOOD ORDERABLES Lula l Result Performing Organization Address City/[facility]/ZIP Co de Phone Number CERNER [facility] [address] [facility] [place] [address] from Last 3 Months Insurance MEDICARE FOR LIFE MEDICARE FOR LIFE Care Teams Rn Staff Relationship Specialty Start Date End Date Sharan Bernstein MD PCP - General Internal Medicine 06/25/19
== END 2025-08-27 14:01 | disposition home or self-care (01) ==
LOC: CHSIMG 14:01
PROVIDERS: PCP Internal Medicine; Visit Provider Internal Medicine
DX: Z12.31 Encounter for screening mammogram for malignant neoplasm of breast (principal)
CPT/HCPCS: 77063; 77067